=== PATIENT | male | born 1950 | race Caucasian/White ===

== ENCOUNTER 2022-08-19 09:17 | Emergency (ER) | payer OTHER, MEDICARE ==
[2022-08-19] MEDS ORDERED: HYDROcodone/Acetaminophen 5/325 mg Tablet ONE (12:29)
== END 2022-08-19 11:55 | disposition home or self-care (01) ==
LOC: ERS 09:17
DX: S82.002A Unspecified fracture of left patella, initial encounter for closed fracture (principal); J44.9 Chronic obstructive pulmonary disease, unspecified; E11.9 Type 2 diabetes mellitus without complications; Z79.4 Long term (current) use of insulin; Z79.82 Long term (current) use of aspirin; Z79.899 Other long term (current) drug therapy; W01.0XXA Fall on same level from slipping, tripping and stumbling without subsequent striking against object, initial encounter
CPT/HCPCS: 94760

== ENCOUNTER 2022-10-05 04:44 | Inpatient (IN) | payer MEDICARE ==
[2022-10-05] MEDS ORDERED: Magnesium 2 GM/50 ML BAG (IN WATER) ONE (05:00)
[2022-10-05] MEDS ORDERED: Ipratropium/Albuterol 3 ML NEB ONE (05:00)
[2022-10-05] MEDS ORDERED: cefTRIAXone\\ROCEPHIN 2 GM VIAL ONE (05:48)
[2022-10-05 06:05] LABS: Actual Bicarbonate (HCO3v) 19 mEq/L (22-28); Base Excess -9.4 mEq/L (-2.0 to +3.0); Calcium, Ionized (venous) 1.07 mmol/L (1.16-1.32); Chloride (VBG) 89 mmol/L (98-106); Hemoglobin (Hb) 12.6 g/dL (12.6-17.4); Sodium 130.4 mmol/L (133-146)
[2022-10-05 06:07] LABS: pH (venous) 7.18 (7.32-7.43)
[2022-10-05] MEDS ORDERED: Azithromycin 500 MG VIAL ONE (06:35)
[2022-10-05 06:36] LABS: ALT (SGPT) 28 U/L (8-55); AST (SGOT) 43 U/L (5-34); Albumin 4.1 g/dL (3.4-4.8); Alkaline Phosphatase 138 U/L (40-110); Anion Gap 29 mmol/L (10-20); BUN (Urea Nitrogen) 85 mg/dL (8.4-25.7); Bilirubin, Total 0.4 mg/dL (0.2-1.2); Calc. Creatinine Clearance 0 mL/min (70-130); Calcium 8.7 mg/dL (7.8-10.44); Carbon Dioxide 16 mmol/L (23-31); Chloride 89 mmol/L (98-107); Estimated GFR 19; Globulin 3.6 g/dL (2.4-3.5); Protein, Total 7.7 g/dL (5.8-8.1); Sodium 129 mmol/L (136-145)
[2022-10-05 06:39] LABS: Glucose 684 mg/dL (83-110)
[2022-10-05 06:45] LABS: Band 18 % (5-11); Hemoglobin 11.6 g/dL (14.0-18.0); Lymphocytes 1 % (21-51); MDiff Complete? YES; Mean Corpuscular Hemoglobin 32.7 pg (27.0-31.0); Mean Corpuscular Volume 99.1 fl (78.0-98.0); Mean Platelet Volume 7.6 fL (7.4-10.4); Neutrophil 81 % (42-75); Platelet Count 322 10x3/uL (130-400); RBC Distribution Width 11.7 % (11.5-14.5); Red Blood Cell (RBC) Count 3.53 mill/uL (4.70-6.10); White Blood Cell (WBC) Count 20.8 10x3/uL (4.8-10.8)
[2022-10-05 07:00] LABS: CKMB 22.3 ng/mL (0-6.6)
[2022-10-05 07:28] LABS: Actual Bicarbonate (HCO3a) 16.1 mEq/L (22-28); Analyzer IN Cardio ER; Base Excess (BEa) -11.1 mEq/L (-2.0 to +3.0); CO2 Tension 40.8 mmHg (35.0-45.0); Calcium, Ionized (arterial) 1.08 mmol/L (1.12-1.30); Carboxyhemoglobin (COHb) 0.3 gm% (0.0-3.0); Hemoglobin (Hb) 11.5 g/dL (14.0-18.0); O2 Tension (PaO2), arterial 145.3 mmHg (> 70.0); Potassium - ABG Lab 4.81 mmol/L (3.70-5.30); pH, Arterial 7.21 (7.35-7.45)
[2022-10-05 07:29] LABS: Puncture Site LRA
[2022-10-05] MEDS ORDERED: Aspirin 300 MG Suppository ONE (07:45)
[2022-10-05] MEDS ORDERED: INSULIN REGULAR IN 0.9 % NACL 100 UNIT/100 ML BAG ONE (08:06)
[2022-10-05] MEDS ORDERED: Insulin Regular 300 UNITS/3 ML VIAL ONE (08:16)
[2022-10-05 08:43] LABS: SARS-CoV-2 NAA Rapid Test Not Detected (NotDetected)
[2022-10-05] MEDS ORDERED: NS 0.9% w/ 20 MEQ KCL 1,000 ML IV PRN ×2 (09:34)
[2022-10-05] MEDS ORDERED: Sodium Chloride 0.9% 1,000 ML IV PRN ×4 (09:34)
[2022-10-05] MEDS ORDERED: Dextrose 5 %-0.45 % NaCl 1,000 ML IV PRN (09:34)
[2022-10-05] MEDS ORDERED: Electrolyte Replacement Protocol 1 EACH IVPB PRN (09:34)
[2022-10-05] MEDS ORDERED: HUMULIN R 100 UNITS in Sodium Chloride 0.9% 100 ML IVPB SCH (09:45)
[2022-10-05 09:50] LABS: Critical Call Chem Troponin I RESULT DECREASING; Troponin I 0.263 ng/mL (< 0.028)
[2022-10-05] MEDS: Ipratropium/Albuterol 3 ML NEB NEB SCH ×4 (10:43→21:48)
[2022-10-05 12:32] LABS: Anion Gap 21 mmol/L (10-20); BUN (Urea Nitrogen) 76 mg/dL (8.4-25.7); Calc. Creatinine Clearance 12 mL/min (70-130); Calcium 8.2 mg/dL (7.8-10.44); Carbon Dioxide 17 mmol/L (23-31); Chloride 102 mmol/L (98-107); Estimated GFR 24; Glucose 288 mg/dL (83-110); Sodium 136 mmol/L (136-145)
[2022-10-05] MEDS: D5 1/2 NS w/20 mEq KCL 1,000 ML IV PRN ×3 (13:43→23:02)
[2022-10-05 15:45] LABS: Anion Gap 20 mmol/L (10-20); BUN (Urea Nitrogen) 67 mg/dL (8.4-25.7); Calc. Creatinine Clearance 14 mL/min (70-130); Calcium 7.7 mg/dL (7.8-10.44); Carbon Dioxide 12 mmol/L (23-31); Chloride 109 mmol/L (98-107); Estimated GFR 29; Glucose 174 mg/dL (83-110); Potassium 4.7 mmol/L (3.5-5.1); Sodium 136 mmol/L (136-145)
[2022-10-05 16:35] LABS: Critical Call Chem Troponin I RESULT DECREASING
[2022-10-05] MEDS: Metoprolol Tartrate 25 MG TAB PO SCH (17:39)
[2022-10-05 18:37] LABS: Anion Gap 15 mmol/L (10-20); BUN (Urea Nitrogen) 64 mg/dL (8.4-25.7); Calc. Creatinine Clearance 15 mL/min (70-130); Carbon Dioxide 22 mmol/L (23-31); Chloride 104 mmol/L (98-107); Estimated GFR 31; Glucose 172 mg/dL (83-110); Potassium 4.1 mmol/L (3.5-5.1); Sodium 137 mmol/L (136-145)
[2022-10-05] MEDS: Mirtazapine 15 MG TAB PO SCH (20:27)
[2022-10-05] MEDS: methylPREDNISolone Sod Succ 40 MG VIAL IVP SCH (20:27)
[2022-10-05 22:42] LABS: Anion Gap 15 mmol/L (10-20); BUN (Urea Nitrogen) 62 mg/dL (8.4-25.7); Calc. Creatinine Clearance 17 mL/min (70-130); Calcium 7.8 mg/dL (7.8-10.44); Carbon Dioxide 19 mmol/L (23-31); Chloride 106 mmol/L (98-107); Estimated GFR 36; Glucose 113 mg/dL (83-110); Potassium 4.6 mmol/L (3.5-5.1); Sodium 135 mmol/L (136-145)
[2022-10-05] MEDS ORDERED: Insulin Glargine 30 UNITS/0.3 ML VIAL SC SCH (23:45)
[2022-10-05] MEDS ORDERED: Dextrose 50% Abboject 50 ML SYRINGE IVP PRN (23:45)
[2022-10-05] MEDS ORDERED: Dextrose 5% in Water 1,000 ML IV PRN (23:45)
[2022-10-06] MEDS: Ipratropium/Albuterol 3 ML NEB NEB SCH ×6 (02:05→21:32)
[2022-10-06 04:01] LABS: Anion Gap 13 mmol/L (10-20); BUN (Urea Nitrogen) 56 mg/dL (8.4-25.7); Calc. Creatinine Clearance 19 mL/min (70-130); Calcium 7.4 mg/dL (7.8-10.44); Carbon Dioxide 20 mmol/L (23-31); Chloride 105 mmol/L (98-107); Estimated GFR 40; Glucose 389 mg/dL (83-110); Sodium 133 mmol/L (136-145)
[2022-10-06] MEDS: HumaLOG 300 UNITS/3 ML VIAL SC PRN ×4 (05:35→19:36)
[2022-10-06] MEDS: FLUoxetine HCl 20 MG CAP PO SCH (08:56)
[2022-10-06] MEDS: Methimazole 10 MG TAB PO SCH (08:56)
[2022-10-06] MEDS: Tamsulosin HCl 0.4 MG CAP PO SCH (08:57)
[2022-10-06] MEDS: Metoprolol Tartrate 25 MG TAB PO SCH ×2 (08:57→19:37)
[2022-10-06] MEDS: methylPREDNISolone Sod Succ 40 MG VIAL IVP SCH ×3 (08:57→20:56)
[2022-10-06] MEDS: Azithromycin 500 MG in Sodium Chloride 0.9% 250 ML 250 ML IVPB SCH (12:03)
[2022-10-06] MEDS: cefTRIAXone\\ROCEPHIN 1 GM in Sodium Chloride 0.9% 100 ML IVPB SCH (13:05)
[2022-10-06] MEDS: Mometasone 200 MCG/Formoterol 5 MCG 120 PUFF INHALER INH SCH (18:09)
[2022-10-06] MEDS ORDERED: Mometasone/Formoterol 200/5 60 PUFF INH SCH (18:30)
[2022-10-06] MEDS: Insulin Glargine 30 UNITS/0.3 ML VIAL SC SCH (19:36)
[2022-10-06] MEDS: Atorvastatin Calcium 40 MG TAB PO SCH (19:37)
[2022-10-06] MEDS: Mirtazapine 15 MG TAB PO SCH (19:37)
[2022-10-06] MEDS ORDERED: Temazepam 15 MG CAP PO PRN (20:24)
[2022-10-06] MEDS: Temazepam 15 MG CAP PO PRN (20:49)
[2022-10-07] MEDS: Ipratropium/Albuterol 3 ML NEB NEB SCH ×6 (02:02→23:55)
[2022-10-07] MEDS: HumaLOG 300 UNITS/3 ML VIAL SC PRN ×4 (05:02→20:48)
[2022-10-07] MEDS: methylPREDNISolone Sod Succ 40 MG VIAL IVP SCH ×3 (05:02→20:49)
[2022-10-07 07:44] LABS: Anion Gap 15 mmol/L (10-20); BUN (Urea Nitrogen) 50 mg/dL (8.4-25.7); Calc. Creatinine Clearance 22 mL/min (70-130); Calcium 8.4 mg/dL (7.8-10.44); Carbon Dioxide 24 mmol/L (23-31); Chloride 106 mmol/L (98-107); Estimated GFR 49; Glucose 276 mg/dL (83-110); Potassium 4.2 mmol/L (3.5-5.1); Sodium 141 mmol/L (136-145)
[2022-10-07 07:47] LABS: #Lymphocytes 0.4 thou/uL (1.20-3.40); #Monocytes 0.2 thou/uL (0.11-0.59); #Neutrophils 15.7 thou/uL (1.40-6.50); %Lymphocytes 2.6 % (21.0-51.0); %Neutrophils 96.3 % (42.0-75.0); Mean Corpuscular HGB CONC 33.3 g/dL (32.0-36.0); Mean Corpuscular Hemoglobin 33.1 pg (27.0-31.0); Mean Corpuscular Volume 99.1 fl (78.0-98.0); Platelet Count 246 10x3/uL (130-400); RBC Distribution Width 11.9 % (11.5-14.5); Red Blood Cell (RBC) Count 3.33 mill/uL (4.70-6.10); White Blood Cell (WBC) Count 16.3 10x3/uL (4.8-10.8)
[2022-10-07] MEDS: Methimazole 10 MG TAB PO SCH (08:09)
[2022-10-07] MEDS: FLUoxetine HCl 20 MG CAP PO SCH (08:09)
[2022-10-07] MEDS: Tamsulosin HCl 0.4 MG CAP PO SCH (08:10)
[2022-10-07] MEDS: Lisinopril 20 MG TAB PO SCH (08:10)
[2022-10-07] MEDS: Metoprolol Tartrate 25 MG TAB PO SCH ×2 (08:10→20:48)
[2022-10-07] MEDS: Mometasone 200 MCG/Formoterol 5 MCG 120 PUFF INHALER INH SCH ×2 (08:29→19:29)
[2022-10-07 11:28] VITALS: BMI 22.6
[2022-10-07] MEDS: Azithromycin 500 MG in Sodium Chloride 0.9% 250 ML 250 ML IVPB SCH (12:21)
[2022-10-07] MEDS: cefTRIAXone\\ROCEPHIN 1 GM in Sodium Chloride 0.9% 100 ML IVPB SCH (12:21)
[2022-10-07] MEDS: Atorvastatin Calcium 40 MG TAB PO SCH (20:48)
[2022-10-07] MEDS: Mirtazapine 15 MG TAB PO SCH (20:48)
[2022-10-07] MEDS: Insulin Glargine 30 UNITS/0.3 ML VIAL SC SCH (20:48)
[2022-10-07] MEDS: Temazepam 15 MG CAP PO PRN (20:48)
[2022-10-08] MEDS: Ipratropium/Albuterol 3 ML NEB NEB SCH ×6 (00:47→23:41)
[2022-10-08] MEDS: methylPREDNISolone Sod Succ 40 MG VIAL IVP SCH (05:11)
[2022-10-08] MEDS: HumaLOG 300 UNITS/3 ML VIAL SC PRN ×4 (05:11→19:58)
[2022-10-08 06:35] LABS: Anion Gap 11 mmol/L (10-20); BUN (Urea Nitrogen) 50 mg/dL (8.4-25.7); Calc. Creatinine Clearance 46 mL/min (70-130); Carbon Dioxide 26 mmol/L (23-31); Chloride 106 mmol/L (98-107); Estimated GFR 54; Glucose 292 mg/dL (83-110); Potassium 4.2 mmol/L (3.5-5.1); Sodium 139 mmol/L (136-145)
[2022-10-08] MEDS: Mometasone 200 MCG/Formoterol 5 MCG 120 PUFF INHALER INH SCH ×2 (07:50→19:42)
[2022-10-08] MEDS: Methimazole 10 MG TAB PO SCH (09:21)
[2022-10-08] MEDS: Metoprolol Tartrate 25 MG TAB PO SCH ×2 (09:21→19:59)
[2022-10-08] MEDS: FLUoxetine HCl 20 MG CAP PO SCH (09:21)
[2022-10-08] MEDS: Lisinopril 20 MG TAB PO SCH (09:21)
[2022-10-08] MEDS: Tamsulosin HCl 0.4 MG CAP PO SCH (09:21)
[2022-10-08] MEDS: cefTRIAXone\\ROCEPHIN 1 GM in Sodium Chloride 0.9% 100 ML IVPB SCH (11:49)
[2022-10-08] MEDS: Azithromycin 500 MG in Sodium Chloride 0.9% 250 ML 250 ML IVPB SCH (11:49)
[2022-10-08 12:20] VITALS: BP 140/69
[2022-10-08] MEDS: CARBIDOPA 25 MG PO SCH ×2 (12:30→12:31)
[2022-10-08] MEDS ORDERED: Carbidopa/Levodopa 25-100 mg Tablet PO SCH (12:30)
[2022-10-08] MEDS: Insulin Glargine 30 UNITS/0.3 ML VIAL SC SCH (19:58)
[2022-10-08] MEDS: Atorvastatin Calcium 40 MG TAB PO SCH (19:58)
[2022-10-08] MEDS: Temazepam 15 MG CAP PO PRN (19:59)
[2022-10-08] MEDS: Mirtazapine 15 MG TAB PO SCH (19:59)
[2022-10-09] MEDS: Ipratropium/Albuterol 3 ML NEB NEB SCH ×4 (03:42→14:49)
[2022-10-09 07:14] LABS: #Lymphocytes 1.8 thou/uL (1.20-3.40); #Monocytes 0.6 thou/uL (0.11-0.59); #Neutrophils 9.4 thou/uL (1.40-6.50); %Eosinophils 0.1 % (0.0-10.0); %Lymphocytes 15.3 % (21.0-51.0); %Monocytes 4.8 % (0.0-10.0); %Neutrophils 79.8 % (42.0-75.0); Hemoglobin 9.4 g/dL (14.0-18.0); Mean Corpuscular HGB CONC 32.7 g/dL (32.0-36.0); Mean Corpuscular Hemoglobin 32.4 pg (27.0-31.0); Mean Corpuscular Volume 99.2 fl (78.0-98.0); Mean Platelet Volume 7.8 fL (7.4-10.4); Platelet Count 209 10x3/uL (130-400); RBC Distribution Width 11.6 % (11.5-14.5); White Blood Cell (WBC) Count 11.7 10x3/uL (4.8-10.8)
[2022-10-09] MEDS: Mometasone 200 MCG/Formoterol 5 MCG 120 PUFF INHALER INH SCH (07:18)
[2022-10-09] MEDS ORDERED: methylPREDNISolone Sod Succ 40 MG VIAL IVP SCH (09:00)
[2022-10-09] MEDS ORDERED: Carbidopa/Levodopa 25-100 mg Tablet PO SCH (09:00)
[2022-10-09] MEDS: Metoprolol Tartrate 25 MG TAB PO SCH (09:32)
[2022-10-09] MEDS: Lisinopril 20 MG TAB PO SCH (09:32)
[2022-10-09] MEDS: Tamsulosin HCl 0.4 MG CAP PO SCH (09:32)
[2022-10-09] MEDS: FLUoxetine HCl 20 MG CAP PO SCH (09:33)
[2022-10-09] MEDS: Methimazole 10 MG TAB PO SCH (09:33)
[2022-10-09 09:53] LABS: Anion Gap 15 mmol/L (10-20); BUN (Urea Nitrogen) 42 mg/dL (8.4-25.7); Calc. Creatinine Clearance 54 mL/min (70-130); Calcium 7.9 mg/dL (7.8-10.44); Carbon Dioxide 24 mmol/L (23-31); Chloride 107 mmol/L (98-107); Estimated GFR 66; Glucose 106 mg/dL (83-110); Sodium 142 mmol/L (136-145)
[2022-10-09] MEDS: Azithromycin 500 MG in Sodium Chloride 0.9% 250 ML 250 ML IVPB SCH (13:24)
[2022-10-09] MEDS: cefTRIAXone\\ROCEPHIN 1 GM in Sodium Chloride 0.9% 100 ML IVPB SCH (13:24)
[2022-10-09 17:23] VITALS: TEMP 99.1
== END 2022-10-09 18:46 | disposition home or self-care (01) | DRG 871 ==
LOC: ERS 04:44 → IMCU/EMU 09:37
PROVIDERS: ADMIT Internal Medicine; ATTEND Hospitalist
DX: A41.9 Sepsis, unspecified organism (principal); E11.10 Type 2 diabetes mellitus with ketoacidosis without coma; I21.A1 Myocardial infarction type 2; J18.9 Pneumonia, unspecified organism; J96.21 Acute and chronic respiratory failure with hypoxia; N17.9 Acute kidney failure, unspecified; E87.1 Hypo-osmolality and hyponatremia; Z20.822 Contact with and (suspected) exposure to COVID-19; R65.20 Severe sepsis without septic shock; J43.9 Emphysema, unspecified; G20 Parkinson's disease; I25.10 Atherosclerotic heart disease of native coronary artery without angina pectoris; Z79.51 Long term (current) use of inhaled steroids; Z79.82 Long term (current) use of aspirin; Z79.899 Other long term (current) drug therapy; Z79.84 Long term (current) use of oral hypoglycemic drugs; Z79.4 Long term (current) use of insulin; Z95.1 Presence of aortocoronary bypass graft; Z90.49 Acquired absence of other specified parts of digestive tract
CPT/HCPCS: 36415; 36416; 36600; 71045; 80048; 80053; 82010; 82553; 82805; 83605; 83880; 84145; 84484; 85025; 86140; 87040; 93005; 93306; 94640; 94660; 96374; 96375; J0456; J0696; J1815; J2920; J3475; J3480; J3490; J7050; J7620; U0002

== ENCOUNTER 2022-10-12 03:07 | Inpatient (IN) | payer MEDICARE ==
[2022-10-12] MEDS ORDERED: Albuterol 2.5 MG/0.5 ML NEB ONE (03:42)
[2022-10-12 04:15] LABS: #Eosinphils 0.1 thou/uL (0.0-0.7); #Lymphocytes 1.1 thou/uL (1.20-3.40); #Monocytes 0.4 thou/uL (0.11-0.59); #Neutrophils 11.7 thou/uL (1.40-6.50); %Basophils 0.1 % (0.0-1.0); %Eosinophils 0.7 % (0.0-10.0); %Lymphocytes 8.4 % (21.0-51.0); %Neutrophils 87.8 % (42.0-75.0); Hemoglobin 11.4 g/dL (14.0-18.0); Mean Corpuscular HGB CONC 33.4 g/dL (32.0-36.0); Mean Corpuscular Hemoglobin 34.3 pg (27.0-31.0); Mean Platelet Volume 8.8 fL (7.4-10.4); Platelet Count 197 10x3/uL (130-400); RBC Distribution Width 11.7 % (11.5-14.5); Red Blood Cell (RBC) Count 3.31 mill/uL (4.70-6.10); White Blood Cell (WBC) Count 13.4 10x3/uL (4.8-10.8)
[2022-10-12 04:42] LABS: ALT (SGPT) 9 U/L (8-55); AST (SGOT) 20 U/L (5-34); Albumin 2.8 g/dL (3.4-4.8); Alkaline Phosphatase 93 U/L (40-110); Anion Gap 17 mmol/L (10-20); BUN (Urea Nitrogen) 23 mg/dL (8.4-25.7); Bilirubin, Total 0.4 mg/dL (0.2-1.2); Calc. Creatinine Clearance 0 mL/min (70-130); Calcium 7.8 mg/dL (7.8-10.44); Carbon Dioxide 20 mmol/L (23-31); Chloride 104 mmol/L (98-107); Estimated GFR 68; Globulin 2.4 g/dL (2.4-3.5); Glucose 264 mg/dL (83-110); Potassium 5.1 mmol/L (3.5-5.1); Protein, Total 5.2 g/dL (5.8-8.1); Sodium 136 mmol/L (136-145)
[2022-10-12] MEDS ORDERED: Aspirin Chewable 81 MG TAB ONE (04:57)
[2022-10-12 04:58] LABS: Bilirubin Negative (Negative); Blood, Urine Small (Negative); Glucose, Urine (Dipstick) >=1000 mg/dL (Negative); Ketone, Urine 15 mg/dL (Negative); Leukocyte Small (Negative); Nitrite Negative (Negative); Protein, Urine (Dipstick) Negative (Neg-Trace); Specific Gravity, Urine 1.015 (1.005-1.030); Urobilinogen 0.2 mg/dL (Less than 2)
[2022-10-12 05:00] LABS: Clarity Turbid (Clear)
[2022-10-12 05:05] LABS: CKMB 3.6 ng/mL (0-6.6)
[2022-10-12 05:16] LABS: RBC/HPF 0-3 HPF (0-3); Squamous Epithelial 0-3 HPF (0-3); Yeast-Budding 1+ HPF (None Seen)
[2022-10-12 09:18] LABS: Troponin I 0.078 ng/mL (< 0.028)
[2022-10-12] MEDS ORDERED: Guaifenesin DM 100-10/5 ML UDCUP PO PRN (10:03)
[2022-10-12] MEDS ORDERED: Senokot S 8.6-50 MG TAB PO PRN (10:03)
[2022-10-12] MEDS ORDERED: Dextrose 5% in Water 1,000 ML IV PRN (10:03)
[2022-10-12] MEDS ORDERED: Ondansetron PF 4 MG/2 ML Vial IVP PRN (10:03)
[2022-10-12] MEDS ORDERED: Dextrose 50% Abboject 50 ML SYRINGE SLOW IVP PRN (10:03)
[2022-10-12] MEDS ORDERED: Ipratropium/Albuterol 3 ML NEB ONE ×2 (10:51→23:40)
[2022-10-12] MEDS: Ipratropium/Albuterol 3 ML NEB NEB SCH ×4 (10:54→23:52)
[2022-10-12 14:25] VITALS: BMI 21.2
[2022-10-12] MEDS: HumaLOG 300 UNITS/3 ML VIAL SC PRN ×2 (17:39→19:59)
[2022-10-12] MEDS: Mag-Al 1200 mg/1200 mg/30 ML UDCUP PO PRN (17:40)
[2022-10-12] MEDS ORDERED: Insulin Glargine 30 UNITS/0.3 ML VIAL SC SCH (17:45)
[2022-10-12] MEDS: Mometasone/Formoterol 200/5 60 PUFF INH SCH (19:08)
[2022-10-12] MEDS: Metoprolol Tartrate 25 MG TAB PO SCH (19:59)
[2022-10-12] MEDS: Mirtazapine 15 MG TAB PO SCH (19:59)
[2022-10-12] MEDS: Insulin Glargine 30 UNITS/0.3 ML VIAL SC SCH (19:59)
[2022-10-13 06:41] LABS: #Basophils 0.1 thou/uL (0.0-0.2); #Eosinphils 0.1 thou/uL (0.0-0.7); #Lymphocytes 2.7 thou/uL (1.20-3.40); #Monocytes 0.8 thou/uL (0.11-0.59); #Neutrophils 7.9 thou/uL (1.40-6.50); %Basophils 0.6 % (0.0-1.0); %Eosinophils 1.1 % (0.0-10.0); %Lymphocytes 23.5 % (21.0-51.0); %Monocytes 6.7 % (0.0-10.0); %Neutrophils 68.2 % (42.0-75.0); Hemoglobin 10.2 g/dL (14.0-18.0); Mean Corpuscular Hemoglobin 33.8 pg (27.0-31.0); Mean Corpuscular Volume 99.4 fl (78.0-98.0); Mean Platelet Volume 8.6 fL (7.4-10.4); Platelet Count 262 10x3/uL (130-400); RBC Distribution Width 11.4 % (11.5-14.5); Red Blood Cell (RBC) Count 3.02 mill/uL (4.70-6.10); White Blood Cell (WBC) Count 11.6 10x3/uL (4.8-10.8)
[2022-10-13] MEDS: Mometasone/Formoterol 200/5 60 PUFF INH SCH ×2 (06:51→18:43)
[2022-10-13] MEDS: Ipratropium/Albuterol 3 ML NEB NEB SCH ×4 (06:51→18:41)
[2022-10-13 06:54] LABS: Anion Gap 11 mmol/L (10-20); BUN (Urea Nitrogen) 27 mg/dL (8.4-25.7); Calc. Creatinine Clearance 68 mL/min (70-130); Calcium 8.4 mg/dL (7.8-10.44); Carbon Dioxide 32 mmol/L (23-31); Chloride 99 mmol/L (98-107); Estimated GFR 85; Glucose 62 mg/dL (83-110); Potassium 3.7 mmol/L (3.5-5.1); Sodium 138 mmol/L (136-145)
[2022-10-13] MEDS: Cyanocobalamin (Vitamin B-12) 1,000 MCG TAB PO SCH (08:15)
[2022-10-13] MEDS: Lisinopril 20 MG TAB PO SCH (08:15)
[2022-10-13] MEDS: Tamsulosin HCl 0.4 MG CAP PO SCH (08:15)
[2022-10-13] MEDS: Aspirin 81 mg Enteric Coated Tablet PO SCH (08:15)
[2022-10-13] MEDS: Methimazole 5 MG TAB PO SCH (08:16)
[2022-10-13] MEDS: FLUoxetine HCl 20 MG CAP PO SCH (08:17)
[2022-10-13] MEDS: Metoprolol Tartrate 25 MG TAB PO SCH ×2 (08:17→21:25)
[2022-10-13] MEDS: Multivit, Therapeutic 1 TAB PO SCH (08:17)
[2022-10-13] MEDS: Carbidopa/Levodopa CR 50-200 mg Tablet PO SCH (08:17)
[2022-10-13] MEDS: Magnesium Oxide 400 MG TAB PO SCH (08:20)
[2022-10-13] MEDS ORDERED: Insulin Glargine 30 UNITS/0.3 ML VIAL SC SCH (09:00)
[2022-10-13] MEDS ORDERED: predniSONE 20 MG TAB PO SCH (09:00)
[2022-10-13] MEDS: HumaLOG 300 UNITS/3 ML VIAL SC PRN ×2 (13:52→18:26)
[2022-10-13] MEDS: Atorvastatin Calcium 40 MG TAB PO SCH (21:25)
[2022-10-13] MEDS: Mirtazapine 15 MG TAB PO SCH (21:26)
[2022-10-13] MEDS: Insulin Glargine 30 UNITS/0.3 ML VIAL SC SCH (21:26)
[2022-10-13] MEDS ORDERED: Ipratropium/Albuterol 3 ML NEB ONE (23:44)
[2022-10-14] MEDS: Acetaminophen 325 MG TAB PO PRN ×2 (04:18→22:30)
[2022-10-14] MEDS: Mag-Al 1200 mg/1200 mg/30 ML UDCUP PO PRN ×2 (04:18→09:37)
[2022-10-14] MEDS: Mometasone/Formoterol 200/5 60 PUFF INH SCH ×2 (06:29→18:35)
[2022-10-14] MEDS: Ipratropium/Albuterol 3 ML NEB NEB SCH ×4 (06:29→18:33)
[2022-10-14] MEDS: Tamsulosin HCl 0.4 MG CAP PO SCH (08:24)
[2022-10-14] MEDS: Carbidopa/Levodopa CR 50-200 mg Tablet PO SCH (08:25)
[2022-10-14] MEDS: Metoprolol Tartrate 25 MG TAB PO SCH ×2 (08:25→22:30)
[2022-10-14] MEDS: FLUoxetine HCl 20 MG CAP PO SCH (08:25)
[2022-10-14] MEDS: Multivit, Therapeutic 1 TAB PO SCH (08:26)
[2022-10-14] MEDS: Lisinopril 20 MG TAB PO SCH (08:26)
[2022-10-14] MEDS: Methimazole 5 MG TAB PO SCH (08:26)
[2022-10-14] MEDS: Aspirin 81 mg Enteric Coated Tablet PO SCH (08:26)
[2022-10-14] MEDS: Magnesium Oxide 400 MG TAB PO SCH (08:26)
[2022-10-14] MEDS: Cyanocobalamin (Vitamin B-12) 1,000 MCG TAB PO SCH (08:26)
[2022-10-14] MEDS: HumaLOG 300 UNITS/3 ML VIAL SC PRN (16:37)
[2022-10-14] MEDS: Atorvastatin Calcium 40 MG TAB PO SCH (22:30)
[2022-10-14] MEDS: Mirtazapine 15 MG TAB PO SCH (22:30)
[2022-10-14] MEDS: Insulin Glargine 30 UNITS/0.3 ML VIAL SC SCH (22:31)
[2022-10-15] MEDS: Ipratropium/Albuterol 3 ML NEB NEB SCH ×4 (07:23→18:34)
[2022-10-15] MEDS: Mometasone/Formoterol 200/5 60 PUFF INH SCH ×2 (07:24→18:35)
[2022-10-15] MEDS: Methimazole 5 MG TAB PO SCH (08:54)
[2022-10-15] MEDS: FLUoxetine HCl 20 MG CAP PO SCH (08:54)
[2022-10-15] MEDS: Multivit, Therapeutic 1 TAB PO SCH (08:54)
[2022-10-15] MEDS: Carbidopa/Levodopa CR 50-200 mg Tablet PO SCH (08:54)
[2022-10-15] MEDS: Cyanocobalamin (Vitamin B-12) 1,000 MCG TAB PO SCH (08:54)
[2022-10-15] MEDS: Lisinopril 20 MG TAB PO SCH (08:55)
[2022-10-15] MEDS: Magnesium Oxide 400 MG TAB PO SCH (08:55)
[2022-10-15] MEDS: Metoprolol Tartrate 25 MG TAB PO SCH ×2 (08:55→22:33)
[2022-10-15] MEDS: Aspirin 81 mg Enteric Coated Tablet PO SCH (08:55)
[2022-10-15] MEDS: Tamsulosin HCl 0.4 MG CAP PO SCH (08:55)
[2022-10-15] MEDS: HYDROcodone/Acetaminophen 5/325 mg Tablet PO PRN ×2 (12:14→22:34)
[2022-10-15] MEDS: HumaLOG 300 UNITS/3 ML VIAL SC PRN ×2 (12:14→16:45)
[2022-10-15] MEDS: Mag-Al 1200 mg/1200 mg/30 ML UDCUP PO PRN (18:12)
[2022-10-15] MEDS: Mirtazapine 15 MG TAB PO SCH (22:33)
[2022-10-15] MEDS: Atorvastatin Calcium 40 MG TAB PO SCH (22:33)
[2022-10-15] MEDS: Insulin Glargine 30 UNITS/0.3 ML VIAL SC SCH (22:34)
[2022-10-16] MEDS: Ipratropium/Albuterol 3 ML NEB NEB SCH ×4 (06:49→18:44)
[2022-10-16] MEDS: Mometasone/Formoterol 200/5 60 PUFF INH SCH ×2 (06:49→18:45)
[2022-10-16 07:11] LABS: #Eosinphils 0.2 thou/uL (0.0-0.7); #Lymphocytes 2.2 thou/uL (1.20-3.40); #Monocytes 0.7 thou/uL (0.11-0.59); #Neutrophils 7.3 thou/uL (1.40-6.50); %Basophils 0.1 % (0.0-1.0); %Eosinophils 1.6 % (0.0-10.0); %Monocytes 7.1 % (0.0-10.0); %Neutrophils 70.2 % (42.0-75.0); Hemoglobin 9.3 g/dL (14.0-18.0); Mean Corpuscular HGB CONC 33.4 g/dL (32.0-36.0); Mean Corpuscular Hemoglobin 33.9 pg (27.0-31.0); Mean Platelet Volume 8.4 fL (7.4-10.4); Platelet Count 296 10x3/uL (130-400); RBC Distribution Width 11.5 % (11.5-14.5); Red Blood Cell (RBC) Count 2.74 mill/uL (4.70-6.10); White Blood Cell (WBC) Count 10.4 10x3/uL (4.8-10.8)
[2022-10-16 07:34] LABS: Anion Gap 10 mmol/L (10-20); BUN (Urea Nitrogen) 29 mg/dL (8.4-25.7); Calc. Creatinine Clearance 53 mL/min (70-130); Calcium 8.4 mg/dL (7.8-10.44); Carbon Dioxide 32 mmol/L (23-31); Chloride 98 mmol/L (98-107); Estimated GFR 63; Glucose 177 mg/dL (83-110); Potassium 4.6 mmol/L (3.5-5.1); Sodium 135 mmol/L (136-145)
[2022-10-16] MEDS: Multivit, Therapeutic 1 TAB PO SCH (09:17)
[2022-10-16] MEDS: Aspirin 81 mg Enteric Coated Tablet PO SCH (09:17)
[2022-10-16] MEDS: FLUoxetine HCl 20 MG CAP PO SCH (09:17)
[2022-10-16] MEDS: Magnesium Oxide 400 MG TAB PO SCH (09:18)
[2022-10-16] MEDS: Carbidopa/Levodopa CR 50-200 mg Tablet PO SCH (09:18)
[2022-10-16] MEDS: Tamsulosin HCl 0.4 MG CAP PO SCH (09:18)
[2022-10-16] MEDS: Cyanocobalamin (Vitamin B-12) 1,000 MCG TAB PO SCH (09:18)
[2022-10-16] MEDS: Lisinopril 20 MG TAB PO SCH (09:19)
[2022-10-16] MEDS: Methimazole 5 MG TAB PO SCH (09:20)
[2022-10-16] MEDS: Metoprolol Tartrate 25 MG TAB PO SCH ×2 (09:22→21:06)
[2022-10-16] MEDS: HYDROcodone/Acetaminophen 5/325 mg Tablet PO PRN ×2 (09:22→23:25)
[2022-10-16] MEDS: HumaLOG 300 UNITS/3 ML VIAL SC PRN ×3 (12:52→21:20)
[2022-10-16] MEDS: Insulin Glargine 30 UNITS/0.3 ML VIAL SC SCH (21:03)
[2022-10-16] MEDS: Atorvastatin Calcium 40 MG TAB PO SCH (21:03)
[2022-10-16] MEDS: Mirtazapine 15 MG TAB PO SCH (21:06)
[2022-10-16] MEDS: Lorazepam 0.5 MG TAB PO SCH (21:08)
[2022-10-17] MEDS: Acetaminophen 325 MG TAB PO PRN (00:35)
[2022-10-17] MEDS: Lorazepam 0.5 MG TAB PO SCH ×3 (05:40→21:10)
[2022-10-17] MEDS: HYDROcodone/Acetaminophen 5/325 mg Tablet PO PRN ×2 (05:40→16:49)
[2022-10-17] MEDS: HumaLOG 300 UNITS/3 ML VIAL SC PRN ×4 (05:51→21:13)
[2022-10-17 06:58] LABS: #Eosinphils 0.1 thou/uL (0.0-0.7); #Lymphocytes 2.4 thou/uL (1.20-3.40); #Monocytes 0.8 thou/uL (0.11-0.59); #Neutrophils 8.1 thou/uL (1.40-6.50); %Basophils 0.2 % (0.0-1.0); %Lymphocytes 21.2 % (21.0-51.0); %Monocytes 6.5 % (0.0-10.0); Hemoglobin 8.7 g/dL (14.0-18.0); Mean Corpuscular HGB CONC 33.6 g/dL (32.0-36.0); Mean Corpuscular Hemoglobin 33.7 pg (27.0-31.0); Mean Platelet Volume 8.3 fL (7.4-10.4); Platelet Count 245 10x3/uL (130-400); RBC Distribution Width 11.6 % (11.5-14.5); Red Blood Cell (RBC) Count 2.59 mill/uL (4.70-6.10); White Blood Cell (WBC) Count 11.4 10x3/uL (4.8-10.8)
[2022-10-17 07:15] LABS: Anion Gap 10 mmol/L (10-20); BUN (Urea Nitrogen) 30 mg/dL (8.4-25.7); Calc. Creatinine Clearance 48 mL/min (70-130); Calcium 8.2 mg/dL (7.8-10.44); Carbon Dioxide 31 mmol/L (23-31); Chloride 97 mmol/L (98-107); Estimated GFR 55; Glucose 202 mg/dL (83-110); Potassium 4.5 mmol/L (3.5-5.1); Sodium 133 mmol/L (136-145)
[2022-10-17] MEDS: Mometasone/Formoterol 200/5 60 PUFF INH SCH ×2 (07:15→18:43)
[2022-10-17] MEDS: Ipratropium/Albuterol 3 ML NEB NEB SCH ×4 (07:15→18:42)
[2022-10-17] MEDS: Multivit, Therapeutic 1 TAB PO SCH (08:41)
[2022-10-17] MEDS: FLUoxetine HCl 20 MG CAP PO SCH (08:42)
[2022-10-17] MEDS: Cyanocobalamin (Vitamin B-12) 1,000 MCG TAB PO SCH (08:42)
[2022-10-17] MEDS: Lisinopril 20 MG TAB PO SCH (08:42)
[2022-10-17] MEDS: Magnesium Oxide 400 MG TAB PO SCH (08:42)
[2022-10-17] MEDS: Metoprolol Tartrate 25 MG TAB PO SCH ×2 (08:42→21:13)
[2022-10-17] MEDS: Tamsulosin HCl 0.4 MG CAP PO SCH (08:42)
[2022-10-17] MEDS: Aspirin 81 mg Enteric Coated Tablet PO SCH (08:42)
[2022-10-17] MEDS: Carbidopa/Levodopa CR 50-200 mg Tablet PO SCH (08:42)
[2022-10-17] MEDS: Methimazole 5 MG TAB PO SCH (11:03)
[2022-10-17] MEDS: Insulin Glargine 30 UNITS/0.3 ML VIAL SC SCH (21:10)
[2022-10-17] MEDS: Atorvastatin Calcium 40 MG TAB PO SCH (21:10)
[2022-10-17] MEDS: Mirtazapine 15 MG TAB PO SCH (21:12)
[2022-10-18] MEDS ORDERED: Ipratropium/Albuterol 3 ML NEB ONE (01:15)
[2022-10-18] MEDS: HumaLOG 300 UNITS/3 ML VIAL SC PRN ×4 (05:06→20:52)
[2022-10-18] MEDS: Lorazepam 0.5 MG TAB PO SCH ×3 (05:10→20:50)
[2022-10-18 06:59] LABS: #Eosinphils 0.1 thou/uL (0.0-0.7); #Lymphocytes 2.1 thou/uL (1.20-3.40); #Monocytes 0.6 thou/uL (0.11-0.59); #Neutrophils 9.5 thou/uL (1.40-6.50); %Basophils 0.3 % (0.0-1.0); %Eosinophils 0.7 % (0.0-10.0); %Lymphocytes 17.1 % (21.0-51.0); %Monocytes 4.8 % (0.0-10.0); %Neutrophils 77.2 % (42.0-75.0); Hemoglobin 8.6 g/dL (14.0-18.0); Mean Corpuscular HGB CONC 32.6 g/dL (32.0-36.0); Mean Corpuscular Hemoglobin 32.8 pg (27.0-31.0); Mean Platelet Volume 8.1 fL (7.4-10.4); Platelet Count 256 10x3/uL (130-400); RBC Distribution Width 11.9 % (11.5-14.5); Red Blood Cell (RBC) Count 2.63 mill/uL (4.70-6.10); White Blood Cell (WBC) Count 12.3 10x3/uL (4.8-10.8)
[2022-10-18 07:17] LABS: Anion Gap 12 mmol/L (10-20); BUN (Urea Nitrogen) 24 mg/dL (8.4-25.7); Calc. Creatinine Clearance 53 mL/min (70-130); Calcium 8.4 mg/dL (7.8-10.44); Carbon Dioxide 27 mmol/L (23-31); Chloride 100 mmol/L (98-107); Estimated GFR 63; Glucose 188 mg/dL (83-110); Potassium 4.3 mmol/L (3.5-5.1); Sodium 135 mmol/L (136-145)
[2022-10-18] MEDS: Magnesium Oxide 400 MG TAB PO SCH (08:37)
[2022-10-18] MEDS: FLUoxetine HCl 20 MG CAP PO SCH (08:37)
[2022-10-18] MEDS: Methimazole 5 MG TAB PO SCH (08:37)
[2022-10-18] MEDS: Tamsulosin HCl 0.4 MG CAP PO SCH (08:37)
[2022-10-18] MEDS: Carbidopa/Levodopa CR 50-200 mg Tablet PO SCH (08:37)
[2022-10-18] MEDS: Cyanocobalamin (Vitamin B-12) 1,000 MCG TAB PO SCH (08:37)
[2022-10-18] MEDS: Aspirin 81 mg Enteric Coated Tablet PO SCH (08:37)
[2022-10-18] MEDS: Multivit, Therapeutic 1 TAB PO SCH (08:37)
[2022-10-18] MEDS: Metoprolol Tartrate 25 MG TAB PO SCH ×2 (08:38→20:51)
[2022-10-18] MEDS: Lisinopril 20 MG TAB PO SCH (08:38)
[2022-10-18] MEDS: Ipratropium/Albuterol 3 ML NEB NEB SCH ×4 (10:34→19:03)
[2022-10-18] MEDS: Mometasone/Formoterol 200/5 60 PUFF INH SCH ×2 (10:34→19:04)
[2022-10-18] MEDS: HYDROcodone/Acetaminophen 5/325 mg Tablet PO PRN (16:30)
[2022-10-18] MEDS: Atorvastatin Calcium 40 MG TAB PO SCH (20:49)
[2022-10-18] MEDS: Insulin Glargine 30 UNITS/0.3 ML VIAL SC SCH (20:50)
[2022-10-18] MEDS: Mirtazapine 15 MG TAB PO SCH (20:50)
[2022-10-19] MEDS: HYDROcodone/Acetaminophen 5/325 mg Tablet PO PRN ×2 (00:55→20:12)
[2022-10-19] MEDS: Lorazepam 0.5 MG TAB PO SCH ×3 (05:17→22:04)
[2022-10-19] MEDS: Ipratropium/Albuterol 3 ML NEB NEB SCH ×4 (07:50→18:16)
[2022-10-19] MEDS: Mometasone/Formoterol 200/5 60 PUFF INH SCH ×2 (07:51→18:18)
[2022-10-19] MEDS: Metoprolol Tartrate 25 MG TAB PO SCH ×2 (08:41→20:12)
[2022-10-19] MEDS: Lisinopril 20 MG TAB PO SCH (08:41)
[2022-10-19] MEDS: Aspirin 81 mg Enteric Coated Tablet PO SCH (08:43)
[2022-10-19] MEDS: FLUoxetine HCl 20 MG CAP PO SCH (08:44)
[2022-10-19] MEDS: Cyanocobalamin (Vitamin B-12) 1,000 MCG TAB PO SCH (08:44)
[2022-10-19] MEDS: Carbidopa/Levodopa CR 50-200 mg Tablet PO SCH (08:44)
[2022-10-19] MEDS: Multivit, Therapeutic 1 TAB PO SCH (08:44)
[2022-10-19] MEDS: Magnesium Oxide 400 MG TAB PO SCH (08:44)
[2022-10-19] MEDS: Tamsulosin HCl 0.4 MG CAP PO SCH (08:44)
[2022-10-19] MEDS: Methimazole 5 MG TAB PO SCH (11:24)
[2022-10-19] MEDS: HumaLOG 300 UNITS/3 ML VIAL SC PRN ×3 (11:50→20:13)
[2022-10-19] MEDS: Atorvastatin Calcium 40 MG TAB PO SCH (20:10)
[2022-10-19] MEDS: Insulin Glargine 30 UNITS/0.3 ML VIAL SC SCH (20:11)
[2022-10-19] MEDS: Mirtazapine 15 MG TAB PO SCH (20:12)
[2022-10-20] MEDS: Lorazepam 0.5 MG TAB PO SCH ×3 (05:36→21:01)
[2022-10-20] MEDS: HumaLOG 300 UNITS/3 ML VIAL SC PRN ×2 (05:36→17:18)
[2022-10-20 06:23] LABS: #Eosinphils 0.1 thou/uL (0.0-0.7); #Lymphocytes 1.3 thou/uL (1.20-3.40); #Monocytes 0.4 thou/uL (0.11-0.59); #Neutrophils 3.7 thou/uL (1.40-6.50); %Basophils 0.7 % (0.0-1.0); %Eosinophils 1.7 % (0.0-10.0); %Lymphocytes 23.9 % (21.0-51.0); %Monocytes 6.5 % (0.0-10.0); %Neutrophils 67.1 % (42.0-75.0); Hemoglobin 8.3 g/dL (14.0-18.0); Mean Corpuscular HGB CONC 33.3 g/dL (32.0-36.0); Mean Corpuscular Hemoglobin 34.2 pg (27.0-31.0); Mean Platelet Volume 7.4 fL (7.4-10.4); Platelet Count 215 10x3/uL (130-400); RBC Distribution Width 11.7 % (11.5-14.5); Red Blood Cell (RBC) Count 2.43 mill/uL (4.70-6.10); White Blood Cell (WBC) Count 5.6 10x3/uL (4.8-10.8)
[2022-10-20 06:48] LABS: Anion Gap 10 mmol/L (10-20); BUN (Urea Nitrogen) 20 mg/dL (8.4-25.7); Calc. Creatinine Clearance 51 mL/min (70-130); Calcium 8.2 mg/dL (7.8-10.44); Carbon Dioxide 29 mmol/L (23-31); Chloride 100 mmol/L (98-107); Estimated GFR 60; Glucose 321 mg/dL (83-110); Potassium 4.3 mmol/L (3.5-5.1); Sodium 135 mmol/L (136-145)
[2022-10-20] MEDS: Mometasone/Formoterol 200/5 60 PUFF INH SCH ×2 (07:33→19:11)
[2022-10-20] MEDS: Ipratropium/Albuterol 3 ML NEB NEB SCH ×4 (07:34→19:09)
[2022-10-20] MEDS: Tamsulosin HCl 0.4 MG CAP PO SCH (08:52)
[2022-10-20] MEDS: Multivit, Therapeutic 1 TAB PO SCH (08:52)
[2022-10-20] MEDS: Metoprolol Tartrate 25 MG TAB PO SCH ×2 (08:52→20:54)
[2022-10-20] MEDS: FLUoxetine HCl 20 MG CAP PO SCH (08:52)
[2022-10-20] MEDS: Cyanocobalamin (Vitamin B-12) 1,000 MCG TAB PO SCH (08:52)
[2022-10-20] MEDS: Aspirin 81 mg Enteric Coated Tablet PO SCH (08:52)
[2022-10-20] MEDS: Carbidopa/Levodopa CR 50-200 mg Tablet PO SCH (08:52)
[2022-10-20] MEDS: Lisinopril 20 MG TAB PO SCH (08:53)
[2022-10-20] MEDS: Magnesium Oxide 400 MG TAB PO SCH (08:53)
[2022-10-20] MEDS: Methimazole 5 MG TAB PO SCH (08:53)
[2022-10-20] MEDS: Atorvastatin Calcium 40 MG TAB PO SCH (20:52)
[2022-10-20] MEDS: Mirtazapine 15 MG TAB PO SCH (20:52)
[2022-10-20] MEDS: Insulin Glargine 30 UNITS/0.3 ML VIAL SC SCH (20:52)
[2022-10-20] MEDS: HYDROcodone/Acetaminophen 5/325 mg Tablet PO PRN (20:56)
[2022-10-21] MEDS: HumaLOG 300 UNITS/3 ML VIAL SC PRN ×4 (05:16→20:44)
[2022-10-21] MEDS: Lorazepam 0.5 MG TAB PO SCH ×3 (05:16→20:45)
[2022-10-21] MEDS: Ipratropium/Albuterol 3 ML NEB NEB SCH ×4 (07:04→18:27)
[2022-10-21] MEDS: Mometasone/Formoterol 200/5 60 PUFF INH SCH ×2 (07:06→18:29)
[2022-10-21] MEDS: Carbidopa/Levodopa CR 50-200 mg Tablet PO SCH (09:12)
[2022-10-21] MEDS: FLUoxetine HCl 20 MG CAP PO SCH (09:12)
[2022-10-21] MEDS: Aspirin 81 mg Enteric Coated Tablet PO SCH (09:12)
[2022-10-21] MEDS: Cyanocobalamin (Vitamin B-12) 1,000 MCG TAB PO SCH (09:12)
[2022-10-21] MEDS: Magnesium Oxide 400 MG TAB PO SCH (09:13)
[2022-10-21] MEDS: Methimazole 5 MG TAB PO SCH (09:13)
[2022-10-21] MEDS: Lisinopril 20 MG TAB PO SCH (09:13)
[2022-10-21] MEDS: Tamsulosin HCl 0.4 MG CAP PO SCH (09:14)
[2022-10-21] MEDS: Multivit, Therapeutic 1 TAB PO SCH (09:14)
[2022-10-21] MEDS: Metoprolol Tartrate 25 MG TAB PO SCH ×2 (09:14→20:33)
[2022-10-21] MEDS: HYDROcodone/Acetaminophen 5/325 mg Tablet PO PRN (09:14)
[2022-10-21] MEDS: Insulin Glargine 30 UNITS/0.3 ML VIAL SC SCH (20:44)
[2022-10-21] MEDS: Atorvastatin Calcium 40 MG TAB PO SCH (20:45)
[2022-10-21] MEDS: Mirtazapine 15 MG TAB PO SCH (20:45)
[2022-10-22] MEDS: HYDROcodone/Acetaminophen 5/325 mg Tablet PO PRN ×2 (00:42→20:06)
[2022-10-22] MEDS: Lorazepam 0.5 MG TAB PO SCH ×3 (06:14→22:17)
[2022-10-22] MEDS: HumaLOG 300 UNITS/3 ML VIAL SC PRN ×3 (06:16→17:38)
[2022-10-22] MEDS: Ipratropium/Albuterol 3 ML NEB NEB SCH ×4 (07:17→18:22)
[2022-10-22] MEDS: Mometasone/Formoterol 200/5 60 PUFF INH SCH ×2 (07:17→18:36)
[2022-10-22] MEDS: Multivit, Therapeutic 1 TAB PO SCH (09:50)
[2022-10-22] MEDS: Cyanocobalamin (Vitamin B-12) 1,000 MCG TAB PO SCH (09:50)
[2022-10-22] MEDS: Carbidopa/Levodopa CR 50-200 mg Tablet PO SCH (09:50)
[2022-10-22] MEDS: Magnesium Oxide 400 MG TAB PO SCH (09:51)
[2022-10-22] MEDS: Lisinopril 20 MG TAB PO SCH (09:51)
[2022-10-22] MEDS: Methimazole 5 MG TAB PO SCH (09:51)
[2022-10-22] MEDS: Metoprolol Tartrate 25 MG TAB PO SCH ×2 (09:51→20:08)
[2022-10-22] MEDS: Tamsulosin HCl 0.4 MG CAP PO SCH (09:52)
[2022-10-22] MEDS: FLUoxetine HCl 20 MG CAP PO SCH (09:52)
[2022-10-22] MEDS: Aspirin 81 mg Enteric Coated Tablet PO SCH (09:52)
[2022-10-22] MEDS: Atorvastatin Calcium 40 MG TAB PO SCH (20:07)
[2022-10-22] MEDS: Mirtazapine 15 MG TAB PO SCH (20:08)
[2022-10-22] MEDS: Insulin Glargine 30 UNITS/0.3 ML VIAL SC SCH (21:01)
[2022-10-23] MEDS: Lorazepam 0.5 MG TAB PO SCH ×3 (06:33→23:12)
[2022-10-23] MEDS: Ipratropium/Albuterol 3 ML NEB NEB SCH ×4 (06:52→19:53)
[2022-10-23] MEDS: Mometasone/Formoterol 200/5 60 PUFF INH SCH ×2 (06:54→19:55)
[2022-10-23] MEDS: Carbidopa/Levodopa CR 50-200 mg Tablet PO SCH (08:35)
[2022-10-23] MEDS: Magnesium Oxide 400 MG TAB PO SCH (08:35)
[2022-10-23] MEDS: Tamsulosin HCl 0.4 MG CAP PO SCH (08:35)
[2022-10-23] MEDS: Cyanocobalamin (Vitamin B-12) 1,000 MCG TAB PO SCH (08:35)
[2022-10-23] MEDS: Aspirin 81 mg Enteric Coated Tablet PO SCH (08:35)
[2022-10-23] MEDS: FLUoxetine HCl 20 MG CAP PO SCH (08:35)
[2022-10-23] MEDS: Multivit, Therapeutic 1 TAB PO SCH (08:35)
[2022-10-23] MEDS: HYDROcodone/Acetaminophen 5/325 mg Tablet PO PRN (08:36)
[2022-10-23] MEDS: Metoprolol Tartrate 25 MG TAB PO SCH ×2 (08:37→20:36)
[2022-10-23] MEDS: Lisinopril 20 MG TAB PO SCH (08:37)
[2022-10-23] MEDS: Methimazole 5 MG TAB PO SCH (08:41)
[2022-10-23] MEDS: HumaLOG 300 UNITS/3 ML VIAL SC PRN ×2 (13:44→16:36)
[2022-10-23] MEDS: Acetaminophen 325 MG TAB PO PRN (18:08)
[2022-10-23] MEDS: Mirtazapine 15 MG TAB PO SCH (20:36)
[2022-10-23] MEDS: Insulin Glargine 30 UNITS/0.3 ML VIAL SC SCH (20:36)
[2022-10-23] MEDS: Atorvastatin Calcium 40 MG TAB PO SCH (20:37)
[2022-10-24] MEDS: Lorazepam 0.5 MG TAB PO SCH ×3 (05:23→19:36)
[2022-10-24] MEDS: Ipratropium/Albuterol 3 ML NEB NEB SCH ×4 (07:30→18:27)
[2022-10-24] MEDS: Mometasone/Formoterol 200/5 60 PUFF INH SCH ×2 (07:30→18:28)
[2022-10-24] MEDS: Multivit, Therapeutic 1 TAB PO SCH (08:29)
[2022-10-24] MEDS: FLUoxetine HCl 20 MG CAP PO SCH (08:29)
[2022-10-24] MEDS: Carbidopa/Levodopa CR 50-200 mg Tablet PO SCH (08:29)
[2022-10-24] MEDS: Magnesium Oxide 400 MG TAB PO SCH (08:29)
[2022-10-24] MEDS: Methimazole 5 MG TAB PO SCH (08:29)
[2022-10-24] MEDS: Tamsulosin HCl 0.4 MG CAP PO SCH (08:29)
[2022-10-24] MEDS: Cyanocobalamin (Vitamin B-12) 1,000 MCG TAB PO SCH (08:29)
[2022-10-24] MEDS: Aspirin 81 mg Enteric Coated Tablet PO SCH (08:29)
[2022-10-24] MEDS: Metoprolol Tartrate 25 MG TAB PO SCH ×2 (08:30→19:33)
[2022-10-24] MEDS: Lisinopril 20 MG TAB PO SCH (08:30)
[2022-10-24] MEDS: Acetaminophen 325 MG TAB PO PRN ×2 (12:10→19:36)
[2022-10-24] MEDS: HumaLOG 300 UNITS/3 ML VIAL SC PRN ×2 (12:11→19:33)
[2022-10-24] MEDS: Insulin Glargine 30 UNITS/0.3 ML VIAL SC SCH (19:33)
[2022-10-24] MEDS: Mirtazapine 15 MG TAB PO SCH (19:34)
[2022-10-24] MEDS: Atorvastatin Calcium 40 MG TAB PO SCH (19:34)
[2022-10-24] MEDS: HYDROcodone/Acetaminophen 5/325 mg Tablet PO PRN (22:28)
[2022-10-25] MEDS: HumaLOG 300 UNITS/3 ML VIAL SC PRN ×3 (05:03→16:45)
[2022-10-25] MEDS: Lorazepam 0.5 MG TAB PO SCH ×3 (05:03→20:14)
[2022-10-25] MEDS: Mometasone/Formoterol 200/5 60 PUFF INH SCH ×2 (07:19→18:23)
[2022-10-25] MEDS: Ipratropium/Albuterol 3 ML NEB NEB SCH ×4 (07:21→18:23)
[2022-10-25] MEDS: Lisinopril 20 MG TAB PO SCH (08:56)
[2022-10-25] MEDS: Metoprolol Tartrate 25 MG TAB PO SCH ×3 (08:58→20:12)
[2022-10-25] MEDS: Aspirin 81 mg Enteric Coated Tablet PO SCH (08:59)
[2022-10-25] MEDS: Cyanocobalamin (Vitamin B-12) 1,000 MCG TAB PO SCH (08:59)
[2022-10-25] MEDS: Carbidopa/Levodopa CR 50-200 mg Tablet PO SCH (08:59)
[2022-10-25] MEDS: FLUoxetine HCl 20 MG CAP PO SCH (09:00)
[2022-10-25] MEDS: Multivit, Therapeutic 1 TAB PO SCH (09:00)
[2022-10-25] MEDS: Methimazole 5 MG TAB PO SCH (09:00)
[2022-10-25] MEDS: Tamsulosin HCl 0.4 MG CAP PO SCH (09:00)
[2022-10-25] MEDS: Magnesium Oxide 400 MG TAB PO SCH (09:01)
[2022-10-25] MEDS: Insulin Glargine 30 UNITS/0.3 ML VIAL SC SCH (20:13)
[2022-10-25] MEDS: Atorvastatin Calcium 40 MG TAB PO SCH (20:13)
[2022-10-25] MEDS: Mirtazapine 15 MG TAB PO SCH (20:14)
[2022-10-25] MEDS: HYDROcodone/Acetaminophen 5/325 mg Tablet PO PRN (21:25)
[2022-10-25] MEDS: Mag-Al 1200 mg/1200 mg/30 ML UDCUP PO PRN (21:25)
[2022-10-26] MEDS: Mag-Al 1200 mg/1200 mg/30 ML UDCUP PO PRN (02:58)
[2022-10-26] MEDS: HumaLOG 300 UNITS/3 ML VIAL SC PRN ×4 (04:12→20:02)
[2022-10-26] MEDS: Lorazepam 0.5 MG TAB PO SCH ×3 (04:18→22:09)
[2022-10-26 06:35] LABS: #Eosinphils 0.2 thou/uL (0.0-0.7); #Monocytes 0.5 thou/uL (0.11-0.59); #Neutrophils 3.3 thou/uL (1.40-6.50); %Basophils 0.3 % (0.0-1.0); %Eosinophils 3.1 % (0.0-10.0); %Lymphocytes 33.1 % (21.0-51.0); %Monocytes 8.1 % (0.0-10.0); %Neutrophils 55.4 % (42.0-75.0); Mean Corpuscular HGB CONC 32.5 g/dL (32.0-36.0); Mean Corpuscular Hemoglobin 33.2 pg (27.0-31.0); Mean Platelet Volume 6.9 fL (7.4-10.4); Platelet Count 337 10x3/uL (130-400); RBC Distribution Width 11.9 % (11.5-14.5); Red Blood Cell (RBC) Count 2.41 mill/uL (4.70-6.10)
[2022-10-26 06:56] LABS: Anion Gap 11 mmol/L (10-20); BUN (Urea Nitrogen) 22 mg/dL (8.4-25.7); Calc. Creatinine Clearance 56 mL/min (70-130); Calcium 8.6 mg/dL (7.8-10.44); Carbon Dioxide 29 mmol/L (23-31); Chloride 100 mmol/L (98-107); Estimated GFR 67; Glucose 229 mg/dL (83-110); Potassium 4.1 mmol/L (3.5-5.1); Sodium 136 mmol/L (136-145)
[2022-10-26] MEDS: Mometasone/Formoterol 200/5 60 PUFF INH SCH ×2 (07:55→19:57)
[2022-10-26] MEDS: Ipratropium/Albuterol 3 ML NEB NEB SCH ×4 (07:56→19:57)
[2022-10-26] MEDS: FLUoxetine HCl 20 MG CAP PO SCH (08:33)
[2022-10-26] MEDS: Lisinopril 20 MG TAB PO SCH (08:33)
[2022-10-26] MEDS: Carbidopa/Levodopa CR 50-200 mg Tablet PO SCH (08:33)
[2022-10-26] MEDS: Metoprolol Tartrate 25 MG TAB PO SCH ×2 (08:33→20:03)
[2022-10-26] MEDS: Multivit, Therapeutic 1 TAB PO SCH (08:33)
[2022-10-26] MEDS: Aspirin 81 mg Enteric Coated Tablet PO SCH (08:33)
[2022-10-26] MEDS: Cyanocobalamin (Vitamin B-12) 1,000 MCG TAB PO SCH (08:34)
[2022-10-26] MEDS: Tamsulosin HCl 0.4 MG CAP PO SCH (08:34)
[2022-10-26] MEDS: Magnesium Oxide 400 MG TAB PO SCH (08:35)
[2022-10-26] MEDS: Methimazole 5 MG TAB PO SCH (11:07)
[2022-10-26] MEDS: Atorvastatin Calcium 40 MG TAB PO SCH (20:02)
[2022-10-26] MEDS: Mirtazapine 15 MG TAB PO SCH (20:03)
[2022-10-26] MEDS: Insulin Glargine 30 UNITS/0.3 ML VIAL SC SCH (20:03)
[2022-10-26] MEDS: HYDROcodone/Acetaminophen 5/325 mg Tablet PO PRN (22:09)
[2022-10-27] MEDS: HumaLOG 300 UNITS/3 ML VIAL SC PRN ×2 (06:05→11:54)
[2022-10-27] MEDS: Lorazepam 0.5 MG TAB PO SCH ×2 (06:06→13:13)
[2022-10-27 06:49] LABS: #Eosinphils 0.2 thou/uL (0.0-0.7); #Lymphocytes 2.7 thou/uL (1.20-3.40); #Monocytes 0.5 thou/uL (0.11-0.59); #Neutrophils 2.8 thou/uL (1.40-6.50); %Basophils 0.5 % (0.0-1.0); %Eosinophils 3.6 % (0.0-10.0); %Lymphocytes 42.9 % (21.0-51.0); %Monocytes 8.5 % (0.0-10.0); %Neutrophils 44.5 % (42.0-75.0); Hemoglobin 8.2 g/dL (14.0-18.0); Mean Corpuscular HGB CONC 33.3 g/dL (32.0-36.0); Mean Corpuscular Hemoglobin 34.2 pg (27.0-31.0); Mean Platelet Volume 7.2 fL (7.4-10.4); Platelet Count 370 10x3/uL (130-400); RBC Distribution Width 12.1 % (11.5-14.5); Red Blood Cell (RBC) Count 2.41 mill/uL (4.70-6.10); White Blood Cell (WBC) Count 6.4 10x3/uL (4.8-10.8)
[2022-10-27 07:11] LABS: Anion Gap 12 mmol/L (10-20); BUN (Urea Nitrogen) 26 mg/dL (8.4-25.7); Calc. Creatinine Clearance 54 mL/min (70-130); Calcium 8.7 mg/dL (7.8-10.44); Carbon Dioxide 29 mmol/L (23-31); Chloride 102 mmol/L (98-107); Estimated GFR 65; Glucose 230 mg/dL (83-110); Potassium 4.6 mmol/L (3.5-5.1); Sodium 138 mmol/L (136-145)
[2022-10-27] MEDS: Ipratropium/Albuterol 3 ML NEB NEB SCH ×2 (07:20→11:14)
[2022-10-27] MEDS: Mometasone/Formoterol 200/5 60 PUFF INH SCH (07:20)
[2022-10-27] MEDS: Cyanocobalamin (Vitamin B-12) 1,000 MCG TAB PO SCH (08:15)
[2022-10-27] MEDS: Multivit, Therapeutic 1 TAB PO SCH (08:16)
[2022-10-27] MEDS: Methimazole 5 MG TAB PO SCH (08:16)
[2022-10-27] MEDS: Carbidopa/Levodopa CR 50-200 mg Tablet PO SCH (08:16)
[2022-10-27] MEDS: Aspirin 81 mg Enteric Coated Tablet PO SCH (08:17)
[2022-10-27] MEDS: Lisinopril 20 MG TAB PO SCH (08:17)
[2022-10-27] MEDS: Tamsulosin HCl 0.4 MG CAP PO SCH (08:17)
[2022-10-27] MEDS: Metoprolol Tartrate 25 MG TAB PO SCH (08:17)
[2022-10-27] MEDS: Magnesium Oxide 400 MG TAB PO SCH (08:17)
[2022-10-27] MEDS: FLUoxetine HCl 20 MG CAP PO SCH (08:17)
[2022-10-27 14:26] VITALS: BP 91/53; TEMP 98.4
== END 2022-10-27 14:08 | disposition home health service (06) | DRG 191 ==
LOC: ERS 03:07 → ERHOLD 05:32 → T4-A 13:29
PROVIDERS: ADMIT Student in an Organized Health Care Education/Training Program; ATTEND Internal Medicine
DX: J44.1 Chronic obstructive pulmonary disease with (acute) exacerbation (principal); J96.11 Chronic respiratory failure with hypoxia; R64 Cachexia; F32.A Depression, unspecified; F41.9 Anxiety disorder, unspecified; G20 Parkinson's disease; I25.10 Atherosclerotic heart disease of native coronary artery without angina pectoris; E78.5 Hyperlipidemia, unspecified; E03.9 Hypothyroidism, unspecified; N40.0 Benign prostatic hyperplasia without lower urinary tract symptoms; E11.65 Type 2 diabetes mellitus with hyperglycemia; T38.0X5A Adverse effect of glucocorticoids and synthetic analogues, initial encounter; E05.90 Thyrotoxicosis, unspecified without thyrotoxic crisis or storm; Z91.14 Patient's other noncompliance with medication regimen; Z95.1 Presence of aortocoronary bypass graft; Z90.49 Acquired absence of other specified parts of digestive tract; Z88.8 Allergy status to other drugs, medicaments and biological substances; Z88.5 Allergy status to narcotic agent; Z79.51 Long term (current) use of inhaled steroids; Z79.82 Long term (current) use of aspirin; Z79.4 Long term (current) use of insulin; Z79.899 Other long term (current) drug therapy; Z87.891 Personal history of nicotine dependence; Z68.21 Body mass index [BMI] 21.0-21.9, adult
CPT/HCPCS: 36415; 36416; 71045; 80048; 80053; 81003; 81015; 82553; 83735; 83880; 84443; 84484; 85025; 87086; 93005; 94640; 94664; J1650; J1815; J7512; J7611; J7620

== ENCOUNTER 2022-11-24 13:56 | Outpatient (CLI) | payer MEDICARE | END 2022-11-24 13:57 | disposition home or self-care (01) | LOC: RAD-FRANK 13:56 | PROVIDERS: ATTEND Nurse Practitioner Family | DX: J44.9 Chronic obstructive pulmonary disease, unspecified (principal); I70.0 Atherosclerosis of aorta | CPT/HCPCS: 71046 ==

== ENCOUNTER 2023-01-03 22:10 | Inpatient (IN) | payer MEDICARE ==
[2023-01-03 22:49] LABS: #Eosinphils 0.1 thou/uL (0.0-0.7); #Lymphocytes 1.8 thou/uL (1.20-3.40); #Monocytes 0.4 thou/uL (0.11-0.59); #Neutrophils 5.4 thou/uL (1.40-6.50); %Basophils 0.4 % (0.0-1.0); %Eosinophils 1.8 % (0.0-10.0); %Lymphocytes 22.4 % (21.0-51.0); %Monocytes 5.5 % (0.0-10.0); %Neutrophils 69.8 % (42.0-75.0); Hemoglobin 11.4 g/dL (14.0-18.0); Mean Corpuscular HGB CONC 34.7 g/dL (32.0-36.0); Mean Corpuscular Hemoglobin 34.1 pg (27.0-31.0); Mean Corpuscular Volume 98.3 fl (78.0-98.0); Mean Platelet Volume 7.5 fL (7.4-10.4); Platelet Count 269 10x3/uL (130-400); RBC Distribution Width 11.5 % (11.5-14.5); Red Blood Cell (RBC) Count 3.35 mill/uL (4.70-6.10); White Blood Cell (WBC) Count 7.8 10x3/uL (4.8-10.8)
[2023-01-03] MEDS ORDERED: cefTRIAXone (ROCEPHIN) 1 GM VIAL ONE (23:05)
[2023-01-03] MEDS ORDERED: methylPREDNISolone Sod Succ/PF 125 MG/2 ML VIAL ONE (23:05)
[2023-01-03 23:10] LABS: ALT (SGPT) 10 U/L (8-55); AST (SGOT) 11 U/L (5-34); Albumin 3.8 g/dL (3.4-4.8); Alkaline Phosphatase 100 U/L (40-110); Anion Gap 15 mmol/L (10-20); BUN (Urea Nitrogen) 26 mg/dL (8.4-25.7); Bilirubin, Total 0.2 mg/dL (0.2-1.2); CK (CPK) 30 U/L (30-200); Calc. Creatinine Clearance 0 mL/min (70-130); Calcium 9.1 mg/dL (7.8-10.44); Carbon Dioxide 25 mmol/L (23-31); Chloride 99 mmol/L (98-107); Estimated GFR 44; Globulin 2.6 g/dL (2.4-3.5); Lipase 83 U/L (8-78); Magnesium 1.9 mg/dL (1.6-2.6); Potassium 4.3 mmol/L (3.5-5.1); Protein, Total 6.4 g/dL (5.8-8.1); Sodium 135 mmol/L (136-145)
[2023-01-03 23:15] LABS: Glucose 474 mg/dL (83-110)
[2023-01-03 23:17] LABS: Actual Bicarbonate (HCO3v) 24 mEq/L (22-28); Base Excess -2.7 mEq/L (-2.0 to +3.0); Calcium, Ionized (venous) 1.15 mmol/L (1.16-1.32); Chloride (VBG) 98 mmol/L (98-106); Hemoglobin (Hb) 11.5 g/dL (12.6-17.4); Potassium (VBG) 4.36 mmol/L (3.70-5.30); Sodium 135.3 mmol/L (133-146)
[2023-01-03] MEDS ORDERED: Ipratropium/Albuterol 3 ML NEB ONE (23:22)
[2023-01-03 23:31] LABS: CKMB 2.2 ng/mL (0-6.6)
[2023-01-04] MEDS ORDERED: Insulin Regular 300 UNITS/3 ML VIAL ONE (00:34)
[2023-01-04] MEDS ORDERED: Aspirin Chewable 81 MG TAB ONE (00:34)
[2023-01-04] MEDS ORDERED: Azithromycin 500 MG VIAL ONE (00:34)
[2023-01-04] MEDS ORDERED: Acetaminophen 650 MG Suppository PR PRN (01:26)
[2023-01-04] MEDS ORDERED: Ondansetron PF 4 MG/2 ML Vial IVP PRN (01:26)
[2023-01-04] MEDS ORDERED: Ondansetron ODT 4 MG TAB PO PRN (01:26)
[2023-01-04] MEDS ORDERED: Dextrose 50% Abboject 50 ML SYRINGE SLOW IVP PRN (01:28)
[2023-01-04] MEDS ORDERED: HumaLOG 300 UNITS/3 ML VIAL SC PRN (01:28)
[2023-01-04] MEDS ORDERED: Dextrose 5% in Water 1,000 ML IV PRN (01:28)
[2023-01-04] MEDS ORDERED: Ipratropium Bromide 2.5 ml Neb NEB PRN (01:37)
[2023-01-04 01:51] LABS: #Lymphocytes 0.5 thou/uL (1.20-3.40); #Monocytes 0.1 thou/uL (0.11-0.59); #Neutrophils 7.5 thou/uL (1.40-6.50); %Basophils 0.1 % (0.0-1.0); %Eosinophils 0.4 % (0.0-10.0); %Lymphocytes 6.5 % (21.0-51.0); %Monocytes 1.2 % (0.0-10.0); %Neutrophils 91.7 % (42.0-75.0); Hemoglobin 10.9 g/dL (14.0-18.0); Mean Corpuscular HGB CONC 35.1 g/dL (32.0-36.0); Mean Corpuscular Hemoglobin 35.1 pg (27.0-31.0); Mean Corpuscular Volume 99.8 fl (78.0-98.0); Mean Platelet Volume 7.6 fL (7.4-10.4); Platelet Count 299 10x3/uL (130-400); RBC Distribution Width 11.6 % (11.5-14.5); Red Blood Cell (RBC) Count 3.11 mill/uL (4.70-6.10); White Blood Cell (WBC) Count 8.2 10x3/uL (4.8-10.8)
[2023-01-04 02:19] LABS: Troponin I 0.037 ng/mL (< 0.028)
[2023-01-04] MEDS ORDERED: Ipratropium Bromide 2.5 ml Neb NEB SCH (02:30)
[2023-01-04 02:53] LABS: Anion Gap 19 mmol/L (10-20); BUN (Urea Nitrogen) 26 mg/dL (8.4-25.7); Calc. Creatinine Clearance 19 mL/min (70-130); Calcium 8.8 mg/dL (7.8-10.44); Carbon Dioxide 21 mmol/L (23-31); Chloride 100 mmol/L (98-107); Estimated GFR 46; Potassium 4.3 mmol/L (3.5-5.1); Sodium 136 mmol/L (136-145)
[2023-01-04 02:56] LABS: Glucose 438 mg/dL (83-110)
[2023-01-04] MEDS: Acetaminophen 325 MG TAB PO PRN ×3 (05:03→19:41)
[2023-01-04 05:46] LABS: Troponin I 0.036 ng/mL (< 0.028)
[2023-01-04] MEDS ORDERED: Insulin Glargine 30 UNITS/0.3 ML VIAL SC SCH (07:15)
[2023-01-04] MEDS: Sodium Chloride 0.9% 1,000 ML IV SCH ×2 (07:57→17:32)
[2023-01-04] MEDS: methylPREDNISolone Sod Succ 40 MG VIAL IVP SCH (08:00)
[2023-01-04] MEDS: Mometasone/Formoterol 200/5 60 PUFF INH SCH ×2 (08:09→18:52)
[2023-01-04] MEDS ORDERED: Temazepam 15 MG CAP PO PRN (08:17)
[2023-01-04 08:51] LABS: Glucose 598 mg/dL (83-110)
[2023-01-04] MEDS ORDERED: HumaLOG 300 UNITS/3 ML VIAL SC SCH (09:00)
[2023-01-04] MEDS ORDERED: FLUoxetine HCl 20 MG CAP PO SCH (09:00)
[2023-01-04] MEDS ORDERED: Alendronate Sodium 70 mg Tablet PO SCH (09:00)
[2023-01-04] MEDS: Carbidopa/Levodopa CR 50-200 mg Tablet PO SCH (09:13)
[2023-01-04] MEDS: Tamsulosin HCl 0.4 MG CAP PO SCH (09:13)
[2023-01-04] MEDS: Metoprolol Tartrate 25 MG TAB PO SCH ×2 (09:13→23:40)
[2023-01-04] MEDS: Cholecalciferol 1,000 UNITS (25 MCG) TAB PO SCH (09:14)
[2023-01-04] MEDS: Methimazole 5 MG TAB PO SCH (09:14)
[2023-01-04] MEDS: Cyanocobalamin (Vitamin B-12) 1,000 MCG TAB PO SCH (09:14)
[2023-01-04] MEDS: Aspirin 81 mg Enteric Coated Tablet PO SCH (09:14)
[2023-01-04] MEDS: Magnesium Oxide 400 MG TAB PO SCH (09:14)
[2023-01-04] MEDS: Multivitamin W/ Minerals 1 TAB PO SCH (09:14)
[2023-01-04] MEDS: Atorvastatin Calcium 40 MG TAB PO SCH (09:14)
[2023-01-04] MEDS: FLUoxetine HCl 20 MG CAP PO SCH (09:24)
[2023-01-04 10:31] LABS: Bacteria/HPF None Seen HPF (None Seen); Bilirubin Negative (Negative); Blood, Urine Negative (Negative); CAUTI Indications for Culture Dysuria,urgency,freq; Clarity Clear (Clear); Glucose, Urine (Dipstick) Greater than 1000 mg/dL (Negative); Ketone, Urine Trace mg/dL (Negative); Leukocyte Negative Leu/uL (Negative); Nitrite Negative (Negative); Protein, Urine (Dipstick) Negative (Neg-Trace); RBC/HPF 0-3 HPF (0-3); Specific Gravity, Urine 1.026 (1.002-1.036); Squamous Epithelial None Seen HPF (0-3); Urobilinogen Normal mg/dL (Less than 2); WBC/HPF 0-3 HPF (0-3)
[2023-01-04 10:33] LABS: Urine Culture Reflex No No
[2023-01-04] MEDS ORDERED: Albuterol HFA (OR) 200 PUFF INH INH PRN (11:19)
[2023-01-04] MEDS ORDERED: Ipratropium 200 Puff Oral Inhaler INH PRN (11:20)
[2023-01-04] MEDS: HumaLOG 300 UNITS/3 ML VIAL SC PRN ×3 (13:10→23:39)
[2023-01-04 13:37] VITALS: BMI 21.5
[2023-01-04] MEDS: Azithromycin 500 MG in Sodium Chloride 0.9% 250 ML 250 ML IVPB SCH (23:37)
[2023-01-04] MEDS: cefTRIAXone\\ROCEPHIN 1 GM in Sodium Chloride 0.9% 100 ML IVPB SCH (23:37)
[2023-01-04] MEDS: Insulin Glargine 30 UNITS/0.3 ML VIAL SC SCH (23:40)
[2023-01-05] MEDS: Acetaminophen 325 MG TAB PO PRN ×3 (04:00→19:57)
[2023-01-05] MEDS: Mometasone/Formoterol 200/5 60 PUFF INH SCH ×2 (08:26→19:04)
[2023-01-05 08:28] LABS: #Monocytes 0.6 thou/uL (0.11-0.59); %Basophils 0.2 % (0.0-1.0); %Eosinophils 0.1 % (0.0-10.0); %Lymphocytes 22.1 % (21.0-51.0); %Monocytes 4.2 % (0.0-10.0); %Neutrophils 73.4 % (42.0-75.0); Hemoglobin 9.7 g/dL (14.0-18.0); Mean Corpuscular Hemoglobin 33.6 pg (27.0-31.0); Mean Corpuscular Volume 99.1 fl (78.0-98.0); Mean Platelet Volume 7.9 fL (7.4-10.4); Platelet Count 258 10x3/uL (130-400); RBC Distribution Width 11.8 % (11.5-14.5); Red Blood Cell (RBC) Count 2.89 mill/uL (4.70-6.10); White Blood Cell (WBC) Count 13.7 10x3/uL (4.8-10.8)
[2023-01-05] MEDS: Cholecalciferol 1,000 UNITS (25 MCG) TAB PO SCH (08:33)
[2023-01-05] MEDS: FLUoxetine HCl 20 MG CAP PO SCH (08:34)
[2023-01-05] MEDS: Methimazole 5 MG TAB PO SCH (08:35)
[2023-01-05] MEDS: Aspirin 81 mg Enteric Coated Tablet PO SCH (08:36)
[2023-01-05] MEDS: Magnesium Oxide 400 MG TAB PO SCH (08:36)
[2023-01-05] MEDS: Carbidopa/Levodopa CR 50-200 mg Tablet PO SCH (08:37)
[2023-01-05] MEDS: Metoprolol Tartrate 25 MG TAB PO SCH ×2 (08:37→20:17)
[2023-01-05] MEDS: Atorvastatin Calcium 40 MG TAB PO SCH (08:37)
[2023-01-05] MEDS: Cyanocobalamin (Vitamin B-12) 1,000 MCG TAB PO SCH (08:38)
[2023-01-05] MEDS: Multivitamin W/ Minerals 1 TAB PO SCH (08:39)
[2023-01-05] MEDS: Tamsulosin HCl 0.4 MG CAP PO SCH (08:40)
[2023-01-05] MEDS: methylPREDNISolone Sod Succ 40 MG VIAL IVP SCH (08:42)
[2023-01-05 08:47] LABS: Anion Gap 10 mmol/L (10-20); BUN (Urea Nitrogen) 29 mg/dL (8.4-25.7); Calc. Creatinine Clearance 51 mL/min (70-130); Calcium 8.2 mg/dL (7.8-10.44); Carbon Dioxide 26 mmol/L (23-31); Chloride 103 mmol/L (98-107); Estimated GFR 60; Glucose 190 mg/dL (83-110); Potassium 4.2 mmol/L (3.5-5.1); Sodium 135 mmol/L (136-145)
[2023-01-05] MEDS: HumaLOG 300 UNITS/3 ML VIAL SC PRN ×2 (11:46→20:15)
[2023-01-05] MEDS ORDERED: oxyCODONE/Acetaminophen 5 mg/325 mg Tablet PO PRN (14:04)
[2023-01-05] MEDS: cefTRIAXone\\ROCEPHIN 1 GM in Sodium Chloride 0.9% 100 ML IVPB SCH (20:16)
[2023-01-05] MEDS: Insulin Glargine 30 UNITS/0.3 ML VIAL SC SCH (20:17)
[2023-01-05] MEDS: Azithromycin 500 MG in Sodium Chloride 0.9% 250 ML 250 ML IVPB SCH (20:17)
[2023-01-06 05:03] LABS: #Monocytes 0.5 thou/uL (0.11-0.59); #Neutrophils 7.1 thou/uL (1.40-6.50); %Basophils 0.5 % (0.0-1.0); %Eosinophils 0.3 % (0.0-10.0); %Monocytes 4.7 % (0.0-10.0); %Neutrophils 66.6 % (42.0-75.0); Hemoglobin 10.5 g/dL (14.0-18.0); Mean Corpuscular HGB CONC 34.5 g/dL (32.0-36.0); Mean Corpuscular Hemoglobin 34.8 pg (27.0-31.0); Mean Platelet Volume 8.2 fL (7.4-10.4); Platelet Count 251 10x3/uL (130-400); RBC Distribution Width 11.9 % (11.5-14.5); Red Blood Cell (RBC) Count 3.01 mill/uL (4.70-6.10); White Blood Cell (WBC) Count 10.7 10x3/uL (4.8-10.8)
[2023-01-06 05:28] LABS: Anion Gap 10 mmol/L (10-20); BUN (Urea Nitrogen) 29 mg/dL (8.4-25.7); Calc. Creatinine Clearance 54 mL/min (70-130); Calcium 8.4 mg/dL (7.8-10.44); Carbon Dioxide 30 mmol/L (23-31); Chloride 103 mmol/L (98-107); Estimated GFR 65; Glucose 198 mg/dL (83-110); Potassium 4.1 mmol/L (3.5-5.1); Sodium 139 mmol/L (136-145)
[2023-01-06] MEDS: Mometasone/Formoterol 200/5 60 PUFF INH SCH ×2 (07:36→18:56)
[2023-01-06] MEDS: Multivitamin W/ Minerals 1 TAB PO SCH (09:45)
[2023-01-06] MEDS: Cholecalciferol 1,000 UNITS (25 MCG) TAB PO SCH (09:45)
[2023-01-06] MEDS: FLUoxetine HCl 20 MG CAP PO SCH (09:46)
[2023-01-06] MEDS: Atorvastatin Calcium 40 MG TAB PO SCH (09:46)
[2023-01-06] MEDS: Methimazole 5 MG TAB PO SCH (09:46)
[2023-01-06] MEDS: Aspirin 81 mg Enteric Coated Tablet PO SCH (09:46)
[2023-01-06] MEDS: Magnesium Oxide 400 MG TAB PO SCH (09:46)
[2023-01-06] MEDS: Tamsulosin HCl 0.4 MG CAP PO SCH (09:47)
[2023-01-06] MEDS: Carbidopa/Levodopa CR 50-200 mg Tablet PO SCH (09:47)
[2023-01-06] MEDS: Metoprolol Tartrate 25 MG TAB PO SCH ×2 (09:48→20:19)
[2023-01-06] MEDS: Cyanocobalamin (Vitamin B-12) 1,000 MCG TAB PO SCH (09:48)
[2023-01-06] MEDS: methylPREDNISolone Sod Succ 40 MG VIAL IVP SCH (09:57)
[2023-01-06] MEDS: HumaLOG 300 UNITS/3 ML VIAL SC PRN ×3 (11:05→20:22)
[2023-01-06] MEDS ORDERED: cefTRIAXone (ROCEPHIN) 1 GM VIAL ONE (20:06)
[2023-01-06] MEDS: Acetaminophen 325 MG TAB PO PRN (20:19)
[2023-01-06] MEDS: Insulin Glargine 30 UNITS/0.3 ML VIAL SC SCH (20:20)
[2023-01-06] MEDS: cefTRIAXone\\ROCEPHIN 1 GM in Sodium Chloride 0.9% 100 ML IVPB SCH (21:07)
[2023-01-06] MEDS: Azithromycin 500 MG in Sodium Chloride 0.9% 250 ML 250 ML IVPB SCH (22:10)
[2023-01-07 06:17] LABS: #Lymphocytes 3.5 thou/uL (1.20-3.40); #Monocytes 0.6 thou/uL (0.11-0.59); #Neutrophils 5.7 thou/uL (1.40-6.50); %Basophils 0.2 % (0.0-1.0); %Eosinophils 0.3 % (0.0-10.0); %Lymphocytes 35.3 % (21.0-51.0); %Monocytes 6.6 % (0.0-10.0); %Neutrophils 57.6 % (42.0-75.0); Mean Corpuscular HGB CONC 33.2 g/dL (32.0-36.0); Mean Corpuscular Hemoglobin 33.7 pg (27.0-31.0); Mean Platelet Volume 8.2 fL (7.4-10.4); Platelet Count 222 10x3/uL (130-400); RBC Distribution Width 11.8 % (11.5-14.5); Red Blood Cell (RBC) Count 2.96 mill/uL (4.70-6.10); White Blood Cell (WBC) Count 9.8 10x3/uL (4.8-10.8)
[2023-01-07 06:29] LABS: Anion Gap 10 mmol/L (10-20); BUN (Urea Nitrogen) 28 mg/dL (8.4-25.7); Calc. Creatinine Clearance 62 mL/min (70-130); Carbon Dioxide 27 mmol/L (23-31); Chloride 104 mmol/L (98-107); Estimated GFR 75; Glucose 143 mg/dL (83-110); Potassium 3.9 mmol/L (3.5-5.1); Sodium 137 mmol/L (136-145)
[2023-01-07] MEDS: Mometasone/Formoterol 200/5 60 PUFF INH SCH (06:59)
[2023-01-07 07:15] VITALS: BP 131/64; TEMP 98.2
[2023-01-07] MEDS ORDERED: predniSONE 20 MG TAB PO SCH (08:00)
[2023-01-07] MEDS ORDERED: Cefdinir 300 MG CAP PO SCH ×2 (08:15→18:00)
[2023-01-07] MEDS: Methimazole 5 MG TAB PO SCH (08:34)
[2023-01-07] MEDS: Cholecalciferol 1,000 UNITS (25 MCG) TAB PO SCH (08:35)
[2023-01-07] MEDS: Carbidopa/Levodopa CR 50-200 mg Tablet PO SCH (08:35)
[2023-01-07] MEDS: Cyanocobalamin (Vitamin B-12) 1,000 MCG TAB PO SCH (08:36)
[2023-01-07] MEDS: FLUoxetine HCl 20 MG CAP PO SCH (08:36)
[2023-01-07] MEDS: Aspirin 81 mg Enteric Coated Tablet PO SCH (08:37)
[2023-01-07] MEDS: Multivitamin W/ Minerals 1 TAB PO SCH (08:37)
[2023-01-07] MEDS: Tamsulosin HCl 0.4 MG CAP PO SCH (08:37)
[2023-01-07] MEDS: Metoprolol Tartrate 25 MG TAB PO SCH (08:37)
[2023-01-07] MEDS: Atorvastatin Calcium 40 MG TAB PO SCH (08:37)
[2023-01-07] MEDS: Magnesium Oxide 400 MG TAB PO SCH (08:37)
[2023-01-07] MEDS: Acetaminophen 325 MG TAB PO PRN ×2 (08:41→12:03)
== END 2023-01-07 13:14 | disposition home or self-care (01) | DRG 193 ==
LOC: ERS 22:10 → 2NO 01-04 00:52 → T4-A 01-06 12:47
PROVIDERS: ADMIT Student in an Organized Health Care Education/Training Program; ATTEND Internal Medicine
PROC: 4A033R1 Measurement of Arterial Saturation, Peripheral, Percutaneous Approach (ICD-10-PCS; principal; 2023-01-04)
DX: J18.9 Pneumonia, unspecified organism (principal); J96.21 Acute and chronic respiratory failure with hypoxia; I50.22 Chronic systolic (congestive) heart failure; N17.9 Acute kidney failure, unspecified; J43.9 Emphysema, unspecified; I25.10 Atherosclerotic heart disease of native coronary artery without angina pectoris; G20 Parkinson's disease; F41.9 Anxiety disorder, unspecified; F32.A Depression, unspecified; E11.65 Type 2 diabetes mellitus with hyperglycemia; Z88.5 Allergy status to narcotic agent; Z90.49 Acquired absence of other specified parts of digestive tract; Z79.84 Long term (current) use of oral hypoglycemic drugs; Z79.4 Long term (current) use of insulin; Z79.82 Long term (current) use of aspirin; Z79.51 Long term (current) use of inhaled steroids; Z79.899 Other long term (current) drug therapy; Z99.81 Dependence on supplemental oxygen
CPT/HCPCS: 36415; 36416; 71045; 80048; 80053; 81001; 82010; 82550; 82553; 82805; 83605; 83690; 83735; 83880; 84484; 85025; 87040; 93005; 94640; 94664; 94760; 96374; 96375; J0456; J0696; J1650; J1815; J2920; J2930; J3490; J7050; J7512; J7620

== ENCOUNTER 2023-01-26 05:47 | Inpatient (IN) | payer MEDICARE ==
[2023-01-26] MEDS ORDERED: Ipratropium/Albuterol 3 ML NEB ONE (06:04)
[2023-01-26 06:21] LABS: #Basophils 0.1 thou/uL (0.0-0.2); #Eosinphils 0.3 thou/uL (0.0-0.7); #Lymphocytes 3.1 thou/uL (1.20-3.40); #Monocytes 0.4 thou/uL (0.11-0.59); #Neutrophils 4.2 thou/uL (1.40-6.50); %Basophils 0.7 % (0.0-1.0); %Eosinophils 3.3 % (0.0-10.0); %Lymphocytes 38.6 % (21.0-51.0); %Monocytes 4.8 % (0.0-10.0); %Neutrophils 52.6 % (42.0-75.0); Hemoglobin 11.5 g/dL (14.0-18.0); Mean Corpuscular Volume 97.1 fl (78.0-98.0); Mean Platelet Volume 7.8 fL (7.4-10.4); Platelet Count 278 10x3/uL (130-400); RBC Distribution Width 11.2 % (11.5-14.5); Red Blood Cell (RBC) Count 3.38 mill/uL (4.70-6.10)
[2023-01-26 06:34] LABS: Actual Bicarbonate (HCO3v) 23.9 mEq/L (22-28); Base Excess -4.6 mEq/L (-2.0 to +3.0); Calcium, Ionized (venous) 1.14 mmol/L (1.16-1.32); Chloride (VBG) 96 mmol/L (98-106); Hematocrit-VBG 38 % (42.0-52.0); Hemoglobin (Hb) 12.8 g/dL (12.6-17.4); Potassium (VBG) 3.95 mmol/L (3.70-5.30)
[2023-01-26 06:44] LABS: ALT (SGPT) 14 U/L (8-55); AST (SGOT) 12 U/L (5-34); Albumin 3.9 g/dL (3.4-4.8); Alkaline Phosphatase 106 U/L (40-110); Anion Gap 15 mmol/L (10-20); BUN (Urea Nitrogen) 38 mg/dL (8.4-25.7); Bilirubin, Total Less than 0.2 mg/dL (0.2-1.2); Calc. Creatinine Clearance 0 mL/min (70-130); Calcium 8.6 mg/dL (7.8-10.44); Carbon Dioxide 24 mmol/L (23-31); Chloride 97 mmol/L (98-107); Estimated GFR 43; Globulin 2.6 g/dL (2.4-3.5); Protein, Total 6.5 g/dL (5.8-8.1); Sodium 132 mmol/L (136-145)
[2023-01-26 06:51] LABS: Glucose 503 mg/dL (83-110)
[2023-01-26 07:04] LABS: CKMB 2.7 ng/mL (0-6.6)
[2023-01-26] MEDS ORDERED: Calcium Carbonate 500 MG ChewTAB PO PRN (07:25)
[2023-01-26] MEDS ORDERED: Ondansetron ODT 4 MG TAB PO PRN (07:25)
[2023-01-26] MEDS ORDERED: Ondansetron PF 4 MG/2 ML Vial IVP PRN (07:25)
[2023-01-26] MEDS ORDERED: Senokot S 8.6-50 MG TAB PO PRN (07:25)
[2023-01-26] MEDS ORDERED: Temazepam 15 MG CAP PO PRN (07:26)
[2023-01-26] MEDS ORDERED: Insulin Regular 300 UNITS/3 ML VIAL ONE (07:26)
[2023-01-26] MEDS ORDERED: Dextrose 5% in Water 1,000 ML IV PRN (07:31)
[2023-01-26] MEDS ORDERED: HumaLOG 300 UNITS/3 ML VIAL SC PRN (07:31)
[2023-01-26] MEDS ORDERED: Dextrose 50% Abboject 50 ML SYRINGE SLOW IVP PRN (07:31)
[2023-01-26] MEDS ORDERED: Ipratropium/Albuterol 3 ML NEB NEB PRN (07:33)
[2023-01-26] MEDS ORDERED: Sodium Chloride 0.9% 1,000 ML IV SCH (08:00)
[2023-01-26] MEDS ORDERED: hydrALAZINE 20 MG/ML VIAL SLOW IVP PRN (08:00)
[2023-01-26] MEDS ORDERED: FLUoxetine HCl 20 MG CAP PO SCH (09:00)
[2023-01-26 10:18] VITALS: BMI 18.6
[2023-01-26 10:34] LABS: Lactic Acid 3.1 mmol/L (0.5-2.2)
[2023-01-26 10:43] LABS: Troponin I 0.074 ng/mL (< 0.028)
[2023-01-26] MEDS: Acetaminophen 325 MG TAB PO PRN (11:51)
[2023-01-26] MEDS: Multivit, Therapeutic 1 TAB PO SCH (11:52)
[2023-01-26] MEDS: Metoprolol Tartrate 25 MG TAB PO SCH ×2 (11:53→20:22)
[2023-01-26] MEDS: Sodium Chloride 0.9% 1,000 ML IV SCH ×2 (11:53→17:10)
[2023-01-26] MEDS: Carbidopa/Levodopa CR 50-200 mg Tablet PO SCH (11:53)
[2023-01-26] MEDS: Aspirin 81 mg Enteric Coated Tablet PO SCH (11:53)
[2023-01-26] MEDS: Tamsulosin HCl 0.4 MG CAP PO SCH (11:53)
[2023-01-26] MEDS: Atorvastatin Calcium 40 MG TAB PO SCH (11:53)
[2023-01-26] MEDS: Insulin Glargine 30 UNITS/0.3 ML VIAL SC SCH ×2 (11:55→20:23)
[2023-01-26] MEDS: Azithromycin 500 MG in Sodium Chloride 0.9% 250 ML 250 ML IVPB SCH (12:25)
[2023-01-26] MEDS ORDERED: Insulin Regular 300 UNITS/3 ML VIAL IVP SCH ×2 (13:15→18:00)
[2023-01-26 15:06] LABS: Lactic Acid 3.2 mmol/L (0.5-2.2)
[2023-01-26 16:30] LABS: Troponin I 0.075 ng/mL (< 0.028)
[2023-01-26 17:44] LABS: Anion Gap 13 mmol/L (10-20); BUN (Urea Nitrogen) 37 mg/dL (8.4-25.7); Calc. Creatinine Clearance 32 mL/min (70-130); Calcium 8.4 mg/dL (7.8-10.44); Carbon Dioxide 25 mmol/L (23-31); Chloride 101 mmol/L (98-107); Estimated GFR 41; Potassium 4.3 mmol/L (3.5-5.1); Sodium 135 mmol/L (136-145)
[2023-01-26 17:55] LABS: Glucose 510 mg/dL (83-110)
[2023-01-26] MEDS: Mometasone 200 MCG/Formoterol 5 MCG 120 PUFF INHALER INH SCH (18:34)
[2023-01-26] MEDS ORDERED: glipiZIDE 5 MG TAB PO SCH (19:00)
[2023-01-26] MEDS: Mirtazapine 15 MG TAB PO SCH (20:23)
[2023-01-26] MEDS ORDERED: Insulin Glargine 30 UNITS/0.3 ML VIAL SC SCH (21:00)
[2023-01-27] MEDS: Acetaminophen 325 MG TAB PO PRN (00:49)
[2023-01-27 05:04] LABS: #Eosinphils 0.5 thou/uL (0.0-0.7); #Monocytes 0.7 thou/uL (0.11-0.59); %Basophils 0.2 % (0.0-1.0); %Eosinophils 4.8 % (0.0-10.0); %Lymphocytes 28.9 % (21.0-51.0); %Monocytes 7.1 % (0.0-10.0); %Neutrophils 58.6 % (42.0-75.0); Hemoglobin 10.1 g/dL (14.0-18.0); Mean Corpuscular HGB CONC 32.4 g/dL (32.0-36.0); Mean Corpuscular Volume 98.7 fl (78.0-98.0); Mean Platelet Volume 10.3 fL (7.4-10.4); Platelet Count 245 10x3/uL (130-400); RBC Distribution Width 12.3 % (11.5-14.5); Red Blood Cell (RBC) Count 3.16 mill/uL (4.70-6.10); White Blood Cell (WBC) Count 10.2 10x3/uL (4.8-10.8)
[2023-01-27 05:13] LABS: Hemoglobin A1c 13.5 % (4.0-6.0)
[2023-01-27 05:37] LABS: ALT (SGPT) 11 U/L (8-55); AST (SGOT) 11 U/L (5-34); Albumin 3.2 g/dL (3.4-4.8); Alkaline Phosphatase 79 U/L (40-110); Anion Gap 8 mmol/L (10-20); BUN (Urea Nitrogen) 31 mg/dL (8.4-25.7); Bilirubin, Total 0.2 mg/dL (0.2-1.2); Calc. Creatinine Clearance 43 mL/min (70-130); Calcium 8.3 mg/dL (7.8-10.44); Carbon Dioxide 26 mmol/L (23-31); Chloride 108 mmol/L (98-107); Estimated GFR 58; Globulin 2.1 g/dL (2.4-3.5); Glucose 164 mg/dL (83-110); Potassium 4.1 mmol/L (3.5-5.1); Protein, Total 5.3 g/dL (5.8-8.1); Sodium 138 mmol/L (136-145)
[2023-01-27] MEDS: Mometasone 200 MCG/Formoterol 5 MCG 120 PUFF INHALER INH SCH ×2 (06:52→18:32)
[2023-01-27] MEDS: FLUoxetine HCl 20 MG CAP PO SCH (10:34)
[2023-01-27] MEDS: Multivit, Therapeutic 1 TAB PO SCH (10:35)
[2023-01-27] MEDS: Atorvastatin Calcium 40 MG TAB PO SCH (10:35)
[2023-01-27] MEDS: Tamsulosin HCl 0.4 MG CAP PO SCH (10:35)
[2023-01-27] MEDS: Aspirin 81 mg Enteric Coated Tablet PO SCH (10:35)
[2023-01-27] MEDS: Metoprolol Tartrate 25 MG TAB PO SCH ×2 (10:35→20:12)
[2023-01-27] MEDS: Carbidopa/Levodopa CR 50-200 mg Tablet PO SCH (10:36)
[2023-01-27] MEDS: Methimazole 5 MG TAB PO SCH (10:36)
[2023-01-27] MEDS: Insulin Glargine 30 UNITS/0.3 ML VIAL SC SCH ×2 (10:39→20:12)
[2023-01-27] MEDS: HumaLOG 300 UNITS/3 ML VIAL SC SCH ×3 (10:41→18:03)
[2023-01-27] MEDS: Azithromycin 500 MG in Sodium Chloride 0.9% 250 ML 250 ML IVPB SCH (10:42)
[2023-01-27] MEDS: glipiZIDE 5 MG TAB PO SCH ×2 (11:00→18:03)
[2023-01-27] MEDS: methylPREDNISolone Sod Succ 40 MG VIAL IVP SCH ×2 (11:22→20:13)
[2023-01-27] MEDS: Ipratropium/Albuterol 3 ML NEB NEB SCH ×3 (13:43→23:46)
[2023-01-27] MEDS: Sodium Chloride 0.9% 1,000 ML IV SCH (16:13)
[2023-01-27 18:18] LABS: #Monocytes 0.1 thou/uL (0.11-0.59); #Neutrophils 8.8 thou/uL (1.40-6.50); %Basophils 0.1 % (0.0-1.0); %Eosinophils 0.1 % (0.0-10.0); %Lymphocytes 6.2 % (21.0-51.0); %Monocytes 0.5 % (0.0-10.0); %Neutrophils 92.8 % (42.0-75.0); Hemoglobin 9.5 g/dL (14.0-18.0); Mean Corpuscular HGB CONC 33.1 g/dL (32.0-36.0); Mean Corpuscular Hemoglobin 32.4 pg (27.0-31.0); Mean Platelet Volume 10.5 fL (7.4-10.4); Platelet Count 211 10x3/uL (130-400); RBC Distribution Width 12.4 % (11.5-14.5); Red Blood Cell (RBC) Count 2.93 mill/uL (4.70-6.10); White Blood Cell (WBC) Count 9.5 10x3/uL (4.8-10.8)
[2023-01-27 18:40] LABS: Anion Gap 10 mmol/L (10-20); BUN (Urea Nitrogen) 30 mg/dL (8.4-25.7); Calc. Creatinine Clearance 41 mL/min (70-130); Carbon Dioxide 21 mmol/L (23-31); Chloride 108 mmol/L (98-107); Estimated GFR 55; Potassium 4.4 mmol/L (3.5-5.1); Sodium 135 mmol/L (136-145)
[2023-01-27 18:51] LABS: Actual Bicarbonate (HCO3a) 21.9 mEq/L (22-28); Analyzer IN Cardio OR; Base Excess (BEa) -3.5 mEq/L (-2.0 to +3.0); Calcium, Ionized (arterial) 1.15 mmol/L (1.12-1.30); Carboxyhemoglobin (COHb) 0.3 gm% (0.0-3.0); Hematocrit-ABG 31 % (42.0-52.0); Hemoglobin (Hb) 10.5 g/dL (14.0-18.0); O2 Tension (PaO2), arterial 86.7 mmHg (> 70.0); Potassium - ABG Lab 3.96 mmol/L (3.70-5.30); pH, Arterial 7.346 (7.35-7.45)
[2023-01-27 18:55] LABS: Puncture Site RRA
[2023-01-27 19:12] LABS: Glucose 409 mg/dL (83-110)
[2023-01-27] MEDS: Mirtazapine 15 MG TAB PO SCH (20:12)
[2023-01-28 05:00] LABS: #Monocytes 0.1 thou/uL (0.11-0.59); #Neutrophils 9.1 thou/uL (1.40-6.50); %Lymphocytes 8.5 % (21.0-51.0); %Monocytes 0.7 % (0.0-10.0); %Neutrophils 90.4 % (42.0-75.0); Hemoglobin 9.2 g/dL (14.0-18.0); Mean Corpuscular HGB CONC 32.3 g/dL (32.0-36.0); Mean Corpuscular Hemoglobin 32.1 pg (27.0-31.0); Mean Corpuscular Volume 99.3 fl (78.0-98.0); Mean Platelet Volume 10.7 fL (7.4-10.4); Platelet Count 248 10x3/uL (130-400); RBC Distribution Width 12.4 % (11.5-14.5); Red Blood Cell (RBC) Count 2.87 mill/uL (4.70-6.10); White Blood Cell (WBC) Count 10.1 10x3/uL (4.8-10.8)
[2023-01-28 05:22] LABS: Anion Gap 9 mmol/L (10-20); BUN (Urea Nitrogen) 27 mg/dL (8.4-25.7); Calc. Creatinine Clearance 41 mL/min (70-130); Calcium 8.1 mg/dL (7.8-10.44); Carbon Dioxide 22 mmol/L (23-31); Chloride 107 mmol/L (98-107); Estimated GFR 55; Glucose 342 mg/dL (83-110); Potassium 4.1 mmol/L (3.5-5.1); Sodium 134 mmol/L (136-145)
[2023-01-28] MEDS: Mometasone 200 MCG/Formoterol 5 MCG 120 PUFF INHALER INH SCH ×2 (07:55→19:01)
[2023-01-28] MEDS: Ipratropium/Albuterol 3 ML NEB NEB SCH ×4 (07:56→23:29)
[2023-01-28] MEDS: Azithromycin 500 MG in Sodium Chloride 0.9% 250 ML 250 ML IVPB SCH (10:24)
[2023-01-28] MEDS: HumaLOG 300 UNITS/3 ML VIAL SC SCH ×3 (10:24→17:26)
[2023-01-28] MEDS: Aspirin 81 mg Enteric Coated Tablet PO SCH (10:24)
[2023-01-28] MEDS: glipiZIDE 5 MG TAB PO SCH ×2 (10:24→17:26)
[2023-01-28] MEDS: Atorvastatin Calcium 40 MG TAB PO SCH (10:24)
[2023-01-28] MEDS: Insulin Glargine 30 UNITS/0.3 ML VIAL SC SCH ×2 (10:25→20:46)
[2023-01-28] MEDS: FLUoxetine HCl 20 MG CAP PO SCH (10:25)
[2023-01-28] MEDS: Carbidopa/Levodopa CR 50-200 mg Tablet PO SCH (10:25)
[2023-01-28] MEDS: Methimazole 5 MG TAB PO SCH (10:26)
[2023-01-28] MEDS: Metoprolol Tartrate 25 MG TAB PO SCH ×2 (10:26→20:46)
[2023-01-28] MEDS: Lisinopril 20 MG TAB PO SCH (10:26)
[2023-01-28] MEDS: Tamsulosin HCl 0.4 MG CAP PO SCH (10:27)
[2023-01-28] MEDS: Multivit, Therapeutic 1 TAB PO SCH (10:27)
[2023-01-28] MEDS: methylPREDNISolone Sod Succ 40 MG VIAL IVP SCH ×2 (12:08→23:22)
[2023-01-28] MEDS: Mirtazapine 15 MG TAB PO SCH (20:46)
[2023-01-29 04:33] LABS: #Monocytes 0.1 thou/uL (0.11-0.59); #Neutrophils 11.1 thou/uL (1.40-6.50); %Basophils 0.1 % (0.0-1.0); %Lymphocytes 6.8 % (21.0-51.0); %Monocytes 0.7 % (0.0-10.0); %Neutrophils 91.9 % (42.0-75.0); Hemoglobin 9.7 g/dL (14.0-18.0); Mean Corpuscular HGB CONC 32.7 g/dL (32.0-36.0); Mean Corpuscular Hemoglobin 32.6 pg (27.0-31.0); Mean Corpuscular Volume 99.7 fl (78.0-98.0); Mean Platelet Volume 10.8 fL (7.4-10.4); Platelet Count 227 10x3/uL (130-400); RBC Distribution Width 12.5 % (11.5-14.5); Red Blood Cell (RBC) Count 2.98 mill/uL (4.70-6.10); White Blood Cell (WBC) Count 12.1 10x3/uL (4.8-10.8)
[2023-01-29 05:01] LABS: Anion Gap 10 mmol/L (10-20); BUN (Urea Nitrogen) 30 mg/dL (8.4-25.7); Calc. Creatinine Clearance 43 mL/min (70-130); Calcium 8.2 mg/dL (7.8-10.44); Carbon Dioxide 22 mmol/L (23-31); Chloride 110 mmol/L (98-107); Estimated GFR 57; Glucose 292 mg/dL (83-110); Magnesium 1.9 mg/dL (1.6-2.6); Potassium 4.3 mmol/L (3.5-5.1); Sodium 138 mmol/L (136-145)
[2023-01-29] MEDS: Mometasone 200 MCG/Formoterol 5 MCG 120 PUFF INHALER INH SCH (06:45)
[2023-01-29] MEDS: Ipratropium/Albuterol 3 ML NEB NEB SCH ×2 (06:50→12:39)
[2023-01-29] MEDS: FLUoxetine HCl 20 MG CAP PO SCH (08:13)
[2023-01-29] MEDS: glipiZIDE 5 MG TAB PO SCH (08:13)
[2023-01-29] MEDS: Multivit, Therapeutic 1 TAB PO SCH (08:13)
[2023-01-29] MEDS: Lisinopril 20 MG TAB PO SCH (08:13)
[2023-01-29] MEDS: Aspirin 81 mg Enteric Coated Tablet PO SCH (08:13)
[2023-01-29] MEDS: Atorvastatin Calcium 40 MG TAB PO SCH (08:13)
[2023-01-29] MEDS: Metoprolol Tartrate 25 MG TAB PO SCH (08:14)
[2023-01-29] MEDS: HumaLOG 300 UNITS/3 ML VIAL SC SCH ×2 (08:14→11:59)
[2023-01-29] MEDS: Tamsulosin HCl 0.4 MG CAP PO SCH (08:14)
[2023-01-29] MEDS: Insulin Glargine 30 UNITS/0.3 ML VIAL SC SCH (08:14)
[2023-01-29] MEDS: Acetaminophen 325 MG TAB PO PRN (08:20)
[2023-01-29] MEDS: Azithromycin 500 MG in Sodium Chloride 0.9% 250 ML 250 ML IVPB SCH (08:28)
[2023-01-29] MEDS: Carbidopa/Levodopa CR 50-200 mg Tablet PO SCH (09:01)
[2023-01-29] MEDS: Methimazole 5 MG TAB PO SCH (09:13)
[2023-01-29] MEDS: methylPREDNISolone Sod Succ 40 MG VIAL IVP SCH (12:00)
[2023-01-29 12:13] VITALS: BP 97/52; TEMP 98.2
[2023-01-29 12:33] LABS: Bilirubin Negative (Negative); Blood, Urine Trace (Negative); CAUTI Indications for Culture Dysuria,urgency,freq; Clarity Turbid (Clear); Glucose, Urine (Dipstick) Greater than 1000 mg/dL (Negative); Ketone, Urine Negative (Negative); Leukocyte 500 Leu/uL (Negative); Nitrite Negative (Negative); Protein, Urine (Dipstick) 10 mg/dL (Neg-Trace); Specific Gravity, Urine 1.022 (1.002-1.036); Squamous Epithelial None Seen HPF (0-3); Urobilinogen Normal mg/dL (Less than 2); WBC/HPF Greater than 50 HPF (0-3); Yeast-Budding 3+ HPF (None Seen); pH, Urine 5.5 (5.0-9.0)
[2023-01-29 12:40] LABS: Bacteria/HPF 1+ HPF (None Seen)
[2023-01-29 12:41] LABS: Urine Culture Reflex Yes Yes
== END 2023-01-29 15:27 | disposition home or self-care (01) | DRG 191 ==
LOC: SUATTDRO 05:47 → ERS 05:47 → 2SW 09:52 → OBSVTOIN 01-27 13:23
PROVIDERS: ADMIT Internal Medicine; ATTEND Internal Medicine
DX: J44.1 Chronic obstructive pulmonary disease with (acute) exacerbation (principal); I24.8 Other forms of acute ischemic heart disease; I50.42 Chronic combined systolic (congestive) and diastolic (congestive) heart failure; I47.20 Ventricular tachycardia, unspecified; N17.9 Acute kidney failure, unspecified; N39.0 Urinary tract infection, site not specified; G20 Parkinson's disease; I11.0 Hypertensive heart disease with heart failure; E78.5 Hyperlipidemia, unspecified; E11.65 Type 2 diabetes mellitus with hyperglycemia; I25.10 Atherosclerotic heart disease of native coronary artery without angina pectoris; Z87.891 Personal history of nicotine dependence; Z95.1 Presence of aortocoronary bypass graft; Z99.81 Dependence on supplemental oxygen; Z88.5 Allergy status to narcotic agent; Z79.51 Long term (current) use of inhaled steroids; Z79.82 Long term (current) use of aspirin; Z79.899 Other long term (current) drug therapy; Z79.4 Long term (current) use of insulin
CPT/HCPCS: 36415; 36416; 36600; 71045; 80048; 80053; 81001; 82010; 82553; 82805; 83036; 83605; 83735; 83880; 84443; 84484; 85025; 87086; 94640; 96361; 96372; 96374; 96375; 96376; G0378; J0456; J1650; J1815; J2920; J7050; J7620